=== PATIENT | male | born 1955 | race Caucasian/White ===

== ENCOUNTER 2020-04-09 22:01 | Inpatient (IN) | payer OTHER ==
[~2020-04-09] VITALS: Ht 188 cm; Wt 69.4 kg
[2020-04-09] MEDS ORDERED: FUROSEMIDE 20 MG/2 ML VIAL ONE (22:12)
[2020-04-09] MEDS ORDERED: methylPREDNISolone SOD SUCC 125 MG/2 ML VL ONE (22:12)
[2020-04-09] MEDS ORDERED: methylPREDNISolone SOD SUCC 125 MG/2 ML VL IV ONE (22:15)
[2020-04-09] MEDS ORDERED: FUROSEMIDE 20 MG/2 ML VIAL IV ONE (22:15)
[2020-04-09 22:45] LABS: Basophils # (auto) 0 10 ^3/uL (0-0.2); Eosinophils # (auto) 0 10 ^3/uL (0-0.8); Hemoglobin 10.5 g/dL (13.5-17.5); Red Cell Distribution Width 18.3 % (11.8-14.3)
[2020-04-09 22:46] LABS: Basophils % (auto) 0.6 % (0.0-2.0); Hematocrit 34.3 % (41.0-53.0); Lymphocytes # (auto) 0.6 10 ^3/uL (0.4-5.4); Lymphocytes % (auto) 6.8 % (10.0-50.0); Mean Corpuscular Hemoglobin 25.9 pg (28.0-32.0); Mean Corpuscular Hgb Conc. 30.7 g/dL (32.0-36.0); Mean Corpuscular Volume 84.4 fL (80.0-100.0); Monocytes # (auto) 0.6 10 ^3/uL (0-1.3); Monocytes % (auto) 6.6 % (0.0-12.0); Neutrophils # (auto) 7.4 10 ^3/uL (1.6-8.6); Nucleated Red Blood Cells % 0.4 %; Platelet Count (auto) 372 10^3/uL (140-450); Red Blood Cells 4.06 10^6/uL (4.5-5.90); White Blood Cell 8.6 10^3/uL (4.4-10.8)
[2020-04-09 23:00] LABS: INR 2.97 (0.9-1.15); Partial Thromboplastin Time 42.1 sec (23.64-32.05)
[2020-04-09 23:05] LABS: Albumin 2.6 g/dL (3.4-5.0); BUN/Creatinine Ratio 22.6; Calcium 8.1 mg/dL (8.5-10.1); Magnesium 2.7 mg/dL (1.6-2.6); Potassium 5.4 mmol/L (3.5-5.1)
[2020-04-09 23:08] VITALS: BP 143/87
[2020-04-09 23:14] LABS: Total Protein 5.9 g/dL (6.4-8.2)
[2020-04-10] MEDS ORDERED: NITROGLYCERIN 0.4 MG SL TAB SL PRN (01:45)
[2020-04-10] MEDS ORDERED: IPRATROPIUM BROM 0.5 MG/2.5ML INH SOL NEB PRN (01:45)
[2020-04-10] MEDS ORDERED: ALBUTEROL SULF 2.5 MG/0.5ML(0.5%) NEB SOLN NEB PRN (01:45)
[2020-04-10] MEDS ORDERED: ZOLPIDEM TARTRATE 5 MG TAB PO PRN (01:45)
[2020-04-10 04:09] VITALS: BP 155/100
[2020-04-10 06:20] VITALS: BP 164/96
--- NOTE | 2020-04-10 06:27 | NUR ---
Respiratory note: RECEIVED PATIENT ON B3 BIPAP FITTED WITH A MEDIUM FULL FACE MASK AND BEING VENTILATED WITH THE ABOVE CHARTED SETTINGS. SPO2 100%, LUNG SOUNDS DIM T/O. MASK REMOVED TO ASSESS SKIN; SKIN WAS CLEAR WITH NO REDNESS AND SHOWING NO SIGNS OF LOSS IN INTEGRITY. NO PROTECTA-GEL IN PLACE; WILL CONTINUE TO ASSESS SKIN INTEGRITY. PATIENT IS TOLERATING BIPAP WELL. FIO2 DECREASED TO 30% AT THIS TIME RN KYLER MADE AWARE OF CHANGE. BIPAP PLUGGED INTO RED OUTLET AND ALL ALARMS ARE SET AND AUDIBLE. PRN MED-NEB NOT INDICATED AT THIS TIME PATIENT IS SHOWING NO SIGNS OR SYMPTOMS OF RESPIRATORY DISTRESS.
[2020-04-10 06:43] LABS: Basophils # (auto) 0 10 ^3/uL (0-0.2); Basophils % (auto) 0.2 % (0.0-2.0); Eosinophils # (auto) 0 10 ^3/uL (0-0.8); Lymphocytes # (auto) 0.1 10 ^3/uL (0.4-5.4); Monocytes # (auto) 0.4 10 ^3/uL (0-1.3); Neutrophils # (auto) 13.6 10 ^3/uL (1.6-8.6)
[2020-04-10 06:45] LABS: Hematocrit 35.5 % (41.0-53.0); Hemoglobin 10.8 g/dL (13.5-17.5); Lymphocytes % (auto) 0.8 % (10.0-50.0); Mean Corpuscular Hemoglobin 25.4 pg (28.0-32.0); Mean Corpuscular Hgb Conc. 30.4 g/dL (32.0-36.0); Mean Corpuscular Volume 83.3 fL (80.0-100.0); Monocytes % (auto) 2.7 % (0.0-12.0); Neutrophils % (auto) 96.3 % (37.0-80.0); Nucleated Red Blood Cells % 0.2 %; Platelet Count (auto) 337 10^3/uL (140-450); Red Blood Cells 4.26 10^6/uL (4.5-5.90); White Blood Cell 14.2 10^3/uL (4.4-10.8)
[2020-04-10 06:53] LABS: Calcium 8.6 mg/dL (8.5-10.1); Potassium 5.2 mmol/L (3.5-5.1)
[2020-04-10 06:56] LABS: BUN/Creatinine Ratio 24.3
[2020-04-10] MEDS: LEVOTHYROXINE SODIUM 25 MCG TAB PO SCH (08:37)
[2020-04-10 08:54] LABS: Creatinine, Urine 31 mg/dL (30.0-125.0); Sodium Urine 52 mmol/L (40-220)
[2020-04-10 08:59] LABS: Urine Bacteria FEW /hpf (None Seen); Urine Blood 2+ /uL (Negative); Urine Specific Gravity 1.009 (1.001-1.035); Urine WBC 30 /hpf (0 - 3)
[2020-04-10] MEDS ORDERED: LISINOPRIL 10 MG TAB PO SCH (10:00)
[2020-04-10] MEDS ORDERED: methylPREDNISolone SOD SUCC 125 MG/2 ML VL IV SCH (10:00)
[2020-04-10] MEDS ORDERED: CARVEDILOL 3.125 MG TAB PO SCH (10:00)
[2020-04-10] MEDS: DOCUSATE SOD 100 MG CAP PO SCH (10:00)
[2020-04-10] MEDS: SODIUM BICARBONATE 50ML VIAL 75 ML in SOD CHL 0.45% 1,000 ML IV SCH (10:06)
[2020-04-10] MEDS: FUROSEMIDE 40 MG/4 ML VIAL IV SCH ×2 (10:13→22:42)
[2020-04-10] MEDS: cefTRIAXone 1GM/50ML D5W 50 ML IV SCH (10:14)
[2020-04-10] MEDS: ASPirin 81 mg TAB PO SCH (10:14)
[2020-04-10] MEDS: CLOPIDOGREL BISULFATE 75 MG TAB PO SCH (10:14)
[2020-04-10] MEDS: ENOXAPARIN SOD 80 MG/0.8ML SYRINGE SC SCH (10:15)
--- NOTE | 2020-04-10 15:35 | NUR ---
Telemetry admit from MARIA E SANCHEZ admitted to Telemetry unit after SBAR received. Patient oriented to ELEANOR GRUBBS, primary RN, unit, room, bed, and unit policies regarding patient care and visiting hours. Patient now on continuous telemetry monitoring, tele box # [59] and telemetry reading on arrival to unit is [SR WITH FIRST DEGREE HB, 70'S]. Patient is alert and awake. Pt is placed on bedside oxygen, 3 L NC. No S/S of distress/SOB or pain at present time. Bed is in lowest position, wheels locked, side rails up x2, and call light is within reach. Pt weighed by bed scale and encouraged to call if they need something. All questions and concerns addressed, patient verbalized understanding. Will continue to monitor q1h and prn.
[2020-04-10 16:09] LABS: Free T4 (Free Thyroxine) 0.75 ng/dL (0.89-1.76)
[2020-04-10 16:10] LABS: Free T3 0.89 pg/mL (2.3-4.2)
[2020-04-10 17:19] VITALS: BP 138/86
--- NOTE | 2020-04-10 17:20 | NUR ---
PT C/O OF SOB. WHEEZING IN BASES PRESENT. RT PAGED FOR PRN MED NEBS. WILL CONTINUE TO MONITOR.
--- NOTE | 2020-04-10 17:50 | NUR ---
Attempting to have pacemaker interrogated. Per Pt, he does not know Pacemaker company. Attempted to call [employer] to determine if that is the company. Spoke with Jared, per Jared, it is not [employer]. Possibly is [employer] though. Will call [employer]. Will continue to monitor q1h and prn.
[2020-04-10] MEDS: ONDANSETRON HCL 4 MG/2 ML VIAL IV PRN (17:52)
[2020-04-10] MEDS: Ensure HIGH Protein Chocolate 8oz Bottle PO SCH (18:00)
--- NOTE | 2020-04-10 18:10 | NUR ---
pt accidently pulled out EJ iv. Pt with scant bleeding. Pressure dressing applied, catheter intact. Pt tolerating well. Will continue to monitor.
--- NOTE | 2020-04-10 19:00 | NUR ---
Opening Shift Note Assumed care of patient, awake and alert. No S/S of distress/SOB or pain. Instructed on POC and to call for assist PRN, will continue to monitor for changes Q1hr and PRN.
--- NOTE | 2020-04-10 19:10 | NUR ---
Closing note Patient awake and alert laying in bed. No S/S of distress/SOB or pain. Pacemaker interrogation of attempting to call [employer] endorsed to NOC RN. Care endorsed to NOC RNYohan.
[2020-04-10 20:00] VITALS: BP 139/70
--- NOTE | 2020-04-10 21:00 | NUR ---
Respiratory note: PT ASSESSED FOR PRN MED NEB TX. PT'S HR 72, RR 18,SPO2 90% ON 3L NC. NO S/S OF ANY RESPIRATORY DISTRESS NOTED. ADVISED PT TO CALL IF TX IS NEEDED. RT NAME AND PAGER NUMBER WRITTEN ON PT'S BOARD.
--- NOTE | 2020-04-10 21:45 | NUR ---
received a phone call from radiologist doctor Yandel Crum Abdominal and pelvis ct has some critical findings needed to be transmitted to doctor You. Paged doctor You right away.
[2020-04-10 22:00] VITALS: BP 139/70
[2020-04-10] MEDS ORDERED: ATORVASTATIN 20 MG TAB PO SCH (22:00)
[2020-04-10] MEDS: CARVEDILOL 12.5 MG TAB PO SCH (22:45)
[2020-04-11] VITALS (7 sets, daily range): BP systolic 94–130; BP diastolic 54–69
[2020-04-11] MEDS: SODIUM BICARBONATE 50ML VIAL 75 ML in SOD CHL 0.45% 1,000 ML IV SCH ×2 (00:19→13:55)
[2020-04-11 05:38] LABS: Basophils # (auto) 0 10 ^3/uL (0-0.2); Eosinophils # (auto) 0 10 ^3/uL (0-0.8); Lymphocytes # (auto) 0.1 10 ^3/uL (0.4-5.4); Monocytes # (auto) 0.7 10 ^3/uL (0-1.3); Nucleated Red Blood Cells % 0.3 %
[2020-04-11 05:41] LABS: Hematocrit 32.8 % (41.0-53.0); Lymphocytes % (auto) 1.2 % (10.0-50.0); Mean Corpuscular Hemoglobin 25.6 pg (28.0-32.0); Mean Corpuscular Hgb Conc. 30.5 g/dL (32.0-36.0); Mean Corpuscular Volume 84.1 fL (80.0-100.0); Monocytes % (auto) 5.9 % (0.0-12.0); Neutrophils # (auto) 11.3 10 ^3/uL (1.6-8.6); Neutrophils % (auto) 92.9 % (37.0-80.0); Platelet Count (auto) 215 10^3/uL (140-450); Red Cell Distribution Width 18.1 % (11.8-14.3); White Blood Cell 12.2 10^3/uL (4.4-10.8)
[2020-04-11 06:05] LABS: Potassium 4.4 mmol/L (3.5-5.1)
--- NOTE | 2020-04-11 06:10 | NUR ---
Pt pulled accidentally his IV out. Attempted IV insertion 3 times unsuccessfully.
[2020-04-11 06:20] LABS: BUN/Creatinine Ratio 28.5; Calcium 8.5 mg/dL (8.5-10.1)
--- NOTE | 2020-04-11 06:45 | NUR ---
Paged doctor Alfaro with the BUN result of 113 Left a message. Paged doctor Avelino.
--- NOTE | 2020-04-11 07:00 | NUR ---
At the end of the shift total urine output was 3750ML
--- NOTE | 2020-04-11 07:25 | NUR ---
Respiratory note: NO PRN TX GIVEN AT THIS TIME, NO SOB NOTED. SPO2 91% ON RA, HR 63, RR 18. 3L N/C ON AT THE BEDSIDE.
--- NOTE | 2020-04-11 07:30 | NUR ---
Opening Shift Note Assuming care of patient at this time. Patient is awake and alert. Patient denies pain. Patient shows no signs or symptoms of distress or shortness of breath. Instructed patient on the plan of care for today and to call for assistance as needed. Call light within reach. Will continue to round hourly and as needed.
--- NOTE | 2020-04-11 07:40 | NUR ---
Endorsed care to Zoey.
[2020-04-11] MEDS: Ensure HIGH Protein Chocolate 8oz Bottle PO SCH (08:00)
--- NOTE | 2020-04-11 08:00 | NUR ---
French Bd Special Education Teacher for pace maker interrogating at the bed side.
[2020-04-11] MEDS: LEVOTHYROXINE SODIUM 25 MCG TAB PO SCH (09:16)
[2020-04-11] MEDS: CARVEDILOL 12.5 MG TAB PO SCH (10:00)
[2020-04-11] MEDS: DOCUSATE SOD 100 MG CAP PO SCH (10:00)
[2020-04-11] MEDS: CLOPIDOGREL BISULFATE 75 MG TAB PO SCH (10:00)
[2020-04-11] MEDS: ENOXAPARIN SOD 80 MG/0.8ML SYRINGE SC SCH (10:00)
[2020-04-11] MEDS: ASPirin 81 mg TAB PO SCH (10:00)
[2020-04-11] MEDS: cefTRIAXone 1GM/50ML D5W 50 ML IV SCH (10:30)
[2020-04-11] MEDS ORDERED: PHYTONADIONE (VIT K)10 MG/ML 1ML VIAL SUBCUT ONE (11:00)
[2020-04-11] MEDS ORDERED: IOHEXOL 300 MG/ML 100ML BOTTLE IJ ONE (11:13)
--- NOTE | 2020-04-11 11:32 | NUR ---
Chest CT with contrast After speaking with Dr. Alfaro, this RN informed patient that by having CT chest with contrast, patient would have to agree to dialysis. Patient is refusing to go on dialysis at this time. Informed Dr. Rich. Will cancel CT chest with contrast at this time.
[2020-04-11] MEDS ORDERED: ADENOSINE 59 MG in GIVE UN-DILUTED 0 ML IV STA (11:42)
[2020-04-11] MEDS ORDERED: GASTROGRAFIN 120 ML SOL ONE (11:51)
--- NOTE | 2020-04-11 11:56 | NUR ---
Oral Contrast Spoke with Dr. Alfaro. Oral contrast for imaging studies is acceptable. IV contrast is not acceptable and should not be administered unless patient is agreeable to be placed on dialysis.
[2020-04-11] MEDS ORDERED: SEVELAMER 800 MG TAB PO SCH (12:00)
[2020-04-11] MEDS ORDERED: EZ-GAS II GRANULES (RADIOLOGY USE) PO ONE (13:21)
--- NOTE | 2020-04-11 15:45 | NUR ---
Pre-Op Took patient down to pre-op at this time in order for patient to have procedure with Dr. Vick. Once downstairs, Dr. Vick would prefer to do procedure tomorrow once labs are addressed. Dr. Vick explained procedure to patient at this time. Patient verbalized understanding.
[2020-04-11] MEDS ORDERED: PIPERACILLIN-TAZOB 2.25GM 50 ML IV ONE (16:15)
--- NOTE | 2020-04-11 16:30 | NUR ---
Call to Blood Bank Call to blood bank. Blood bank aware of patient's orders. They will call when plasma is ready.
--- NOTE | 2020-04-11 17:42 | NUR ---
[phone] 04/11/20 - Faxed the following to [facility], [facility], [place] facilities requesting higher level of care, (patient requires repair of distal esophageal tear) face sheet, H/P, labs, Meds, imaging, consults, Echo. Placed patient on [facility] will call list. Nurse caring for patient (Zoey) made aware.
--- NOTE | 2020-04-11 18:24 | NUR ---
Consents Patient is refusing to sign procedure consents at this time because, "I'm tired and hungry!" Will notify police shift commander RN to attempt to have consents signed for both procedures.
--- NOTE | 2020-04-11 19:31 | NUR ---
Closing Shift Note Patient resting in bed. No distress noted. Report given. Will endorse care to the academic affairs assistant RN.
--- NOTE | 2020-04-11 23:39 | NUR ---
RECEIVED REPORT FROM NURSE KEY REGARDING PATIENT. PATIENT HAS PENDING PLATELET INFUSION. PATIENT BEING TRANSFERRED REQUIRING SITTER AT BEDSIDE FOR CONFUSION. AWAITING PATIENT ARRIVAL TO UNIT.
[2020-04-12] VITALS (42 sets, daily range): BP systolic 83–141; BP diastolic 42–117
--- NOTE | 2020-04-12 00:15 | NUR ---
Pt transferred to the sitter room 248B.Endorsed care to Julia
[2020-04-12] MEDS: PIPERACILLIN-TAZOB 2.25GM 50 ML IV SCH ×4 (00:19→17:24)
--- NOTE | 2020-04-12 00:28 | NUR ---
INITIATED PLASMA TRANSFUSION Addendum: 04/12/20 at 0152 by LEANN WU RN RN PATIENT HAS NO ADVERSE REACTIONS TO PLASMA VITALS STABLE.
--- NOTE | 2020-04-12 00:30 | NUR ---
PATIENT HYPOTENSIVE BP85/54 HR 64 ASYMPTOMATIC. CRIS HOSPITALIST FOR ORDERS AWAIITNG CALL BACK. Addendum: 04/12/20 at 0057 by LEANN WU RN RN RECEIVED ORDER FOR ALBUMIN 5% 250ML IV X1 FOR HYPOTENSION BP 85/51
[2020-04-12] MEDS ORDERED: ALBUMIN 5% 250 ML IV ONE (01:00)
[2020-04-12] MEDS: SODIUM BICARBONATE 50ML VIAL 75 ML in SOD CHL 0.45% 1,000 ML IV SCH (04:15)
--- NOTE | 2020-04-12 06:18 | NUR ---
CHARGE CONFIRMED PATIENT IS STILL ON SCHEDULE FOR THORACOTOMY WITH DR QUINONES. PAGED DR QUINONES REGARDING PATIENT. AWAITING CALL BACK. PRE-OP CALLED ASKING ABOUT PATIENT PROCEDURE AND THAT SHE WILL TALK TO OR CHARGE NURSE.
--- NOTE | 2020-04-12 07:30 | NUR ---
Opening Shift Note Assumed care of patient, awake and alert. No S/S of distress/SOB or pain. Instructed on POC and to call for assist PRN, will continue to monitor for changes Q1hr and PRN. Bed locked and in low position and call light within reach.
--- NOTE | 2020-04-12 07:50 | NUR ---
SPOKE WITH MD QUINONES SURGERY WILL NOT BE DONE AT THIS TIME PATIENT IS HIGH RISK FOR COMPLICATIONS. PATIENT NEEDS TO BE TRANSFERRED TO HIGHER LEVEL OF CARE FOR PROCEDURE. PER MD QUINONES PATIENT NEEDS TO BE TRANSFERRED TO ICU, DUE TO RISK OF COMPLICATIONS WITH PATIENTS DIAGNOSIS. WILL INFORM UNDERCOLLAR MAKER OF TRANSFER REQUEST.
--- NOTE | 2020-04-12 09:15 | NUR ---
I faxed urgent higher level of care request to both [facility] and [facility], asking for a list of contracted facilities as well as authorization for the transfer.
--- NOTE | 2020-04-12 09:18 | NUR ---
I called [facility] and spoke with Malorie, she said they declined this patient for transfer-they deemed him too high risk for surgery at this time due to elevated INR.
[2020-04-12] MEDS ORDERED: SODIUM CHLORIDE 0.9% 1,000 ML IV SCH (09:30)
--- NOTE | 2020-04-12 09:32 | NUR ---
0930 04/12/20 I contacted [facility] and left message for Clerical Supervisor Catherine [phone] regarding stat need for transfer to higher level of care-asking for list of contracted facilities and authorization for facility as well as transportation. I contacted [facility] and left message for case finishing machine adjuster Blanche [phone] extension [phone] regarding stat need for transfer to higher level of care-asking for list of contracted facilities and authorization for facility as well as transportation. Same request faxed to both [facility] and [facility].
--- NOTE | 2020-04-12 09:40 | NUR ---
PATIENT TRANSFERRED TO ICU BED 106 NO S/S OF DISTRESS OR SOB. REPORT GIVEN TO MONICA GÓMEZ.
--- NOTE | 2020-04-12 09:40 | NUR ---
MARIA E MARTINEZ received to ICU via hospital bed on forestry aide, and portable 02. Patient transferred to bed, connected to unit monitoring and oxygen, and weighed by [facility]. See interventions for complete assessment. Patient oriented to Anh bain RN, unit, room, bed, and unit policies regarding patient care and visiting hours. All questions and concerns addressed, patient verbalized understanding. Bed locked on low position, side rails up x2, bed alarms on at all times, call medina within reach, instructed on NPO and to call for needed assistance. Will continue to monitor.
[2020-04-12 09:44] LABS: Alanine Aminotransferase 633 U/L (16-61); Anion Gap 11 (5-15); Aspartate Aminotransferase 196 U/L (15-37); Calcium 7.6 mg/dL (8.5-10.1); Carbon Dioxide 24 mmol/L (21-32); Chloride 106 mmol/L (98-107); GFR African American 24 mL/min; GFR Non-African American 19 mL/min; Glucose 147 mg/dL (74-106); Potassium 3.7 mmol/L (3.5-5.1); Sodium 141 mmol/L (136-145)
[2020-04-12 09:46] LABS: Alkaline Phosphatase 70 U/L (45-117); Bilirubin, Total 0.6 mg/dL (0.2-1.0); Total Protein 5.1 g/dL (6.4-8.2)
[2020-04-12] MEDS ORDERED: FUROSEMIDE 40 MG/4 ML VIAL IV SCH (10:00)
[2020-04-12 10:03] LABS: Blood Urea Nitrogen 106 mg/dL (7-18)
--- NOTE | 2020-04-12 10:24 | NUR ---
1020 04/12/20 I spoke with Catherine from [facility] regarding the transfer to higher level of care order. Per Catherine, since patient is out of area, they want to bring patient back in network ([place]) to a higher level of care facility. I faxed additional clinical information as requested to Catherine-provided her with contact information for Dr. Rich. Per Catherine she will reach out to her biomedical technician to find out which of their contracted facilities have the capability to accommodate this patient-she will then reach out to those facilities to see if she can find an accepting physician. She will call me back with an update on the status of the transfer request. She will be providing authorization for the higher level of care facility, she said Human provides authorization for the transportation to the facility.
[2020-04-12] MEDS ORDERED: NOREPINEPHRINE 8 MG/250ML KIT 250 ML IV SCH (10:30)
[2020-04-12 10:36] LABS: INR 1.29 (0.9-1.15)
[2020-04-12 10:36] LABS: Basophils # (auto) 0 10 ^3/uL (0-0.2); Eosinophils # (auto) 0 10 ^3/uL (0-0.8); Lymphocytes # (auto) 0.1 10 ^3/uL (0.4-5.4); Monocytes # (auto) 0.6 10 ^3/uL (0-1.3); Nucleated Red Blood Cells % 0.2 %; White Blood Cell 11.3 10^3/uL (4.4-10.8)
[2020-04-12 10:37] LABS: Partial Thromboplastin Time 41.9 sec (23.64-32.05)
[2020-04-12 10:38] LABS: Basophils % (auto) 0.1 % (0.0-2.0); Hematocrit 32.1 % (41.0-53.0); Hemoglobin 9.9 g/dL (13.5-17.5); Mean Corpuscular Hemoglobin 25.5 pg (28.0-32.0); Mean Corpuscular Hgb Conc. 30.8 g/dL (32.0-36.0); Mean Corpuscular Volume 82.9 fL (80.0-100.0); Monocytes % (auto) 5.7 % (0.0-12.0); Neutrophils # (auto) 10.5 10 ^3/uL (1.6-8.6); Neutrophils % (auto) 93.2 % (37.0-80.0); Platelet Count (auto) 179 10^3/uL (140-450); Red Blood Cells 3.87 10^6/uL (4.5-5.90); Red Cell Distribution Width 18.4 % (11.8-14.3)
--- NOTE | 2020-04-12 10:38 | NUR ---
Dr Rich at bedside, updated on patient's status. Patient seen and examined. Will carry out new orders.
[2020-04-12] MEDS ORDERED: LINEZOLID 600MG/300ML 300 ML IV ONE (11:00)
--- NOTE | 2020-04-12 12:32 | NUR ---
PT ASSESSED FOR PRN HHN TX. PT IS ON 4LNC, SPO2 98%, HR 63, RR 20. NO S/S OF RESPIRATORY DISTRESS. LUNGS ARE CLEAR AND DECREASED. PT AWARE TO HAVE RT PAGED IF TX NEEDED. WILL CONTINUE TO MONITOR.
--- NOTE | 2020-04-12 13:00 | NUR ---
Midline Placement: Patient educated on need for midline placement. All risks and benefits explained and all questions and concerns addresses prior to procedure. 20g/8cm midline inserted via right basilic vein using Ultrasound. Sterile technique utilized. Blood return obtained from lumen and flushed easily with NS using proper technique. Midline secured with saline lock; biodisc and occlusive dressing applied. Primary RN notified. Midline lot #[id number]
[2020-04-12] MEDS ORDERED: LIDOCAINE 2%HCL (LOCAL ANESTH.) INJ 20ML MDV ONE (13:08)
[2020-04-12] MEDS ORDERED: OMNIPAQUE ORAL SOLN 500ml 12mg/ml PO ONE (13:08)
[2020-04-12] MEDS: OCTREOTIDE ACETATE 100 MCG/ML VL SUBCUT SCH ×2 (14:12→22:31)
--- NOTE | 2020-04-12 15:14 | NUR ---
Patient out of room to CT scan.
--- NOTE | 2020-04-12 15:24 | NUR ---
1515 04/12/20 I spoke with Catherine from [facility] requesting an update on the status of the transfer-I let her know that patient is now on a Levophed drip and needs to be transferred STAT. She told me she is waiting to hear back from her Mold Maker Helper as to which facilities she can reach out to. I called Catherine back and left a message asking to speak with a housekeeper supervisor if her medical scientist isn't available and that I need to know specific facilities that we can reach out to.
[2020-04-12] MEDS ORDERED: fentaNYL CITRATE 100 MCG/2 ML VL ONE (15:26)
[2020-04-12] MEDS ORDERED: MIDAZOLAM HCL 1MG/1ML-2 ML VIAL ONE (15:27)
--- NOTE | 2020-04-12 15:28 | NUR ---
Received call from patient's daughter Stephanie who's able to provide password. Updated on patient's status and POC, made aware patient is out of room at this time for mediastinal drain and chest tube placement. Verbalized understanding. All questions and concerns addressed.
--- NOTE | 2020-04-12 16:26 | NUR ---
1616 04/12/20 I spoke with [facility] Foot Caster Catherine [phone] regarding the transfer to higher level of care-she said per her medical pathologist Dr. Benitez [phone] patient is not stable for transfer at this time-they will not authorize transfer to higher level of care. I spoke with Dr. Vick to make him aware-he agreed that the patient is not stable at this time-radiology is going to perform a procedure to drain the mediastinum and when more stable Dr. Vick will consider doing a gastrostomy. I spoke with Dr. Rich to make him aware that [facility] will not authorize transfer to higher level of care at this time-he called their medical pathologist Dr. Benitez ([phone]) and there was no answer. Addendum: 04/12/20 at 1655 by Aurelia Cain RN CM I spoke with nurse Kamara to update her on the status of the transfer request and that I had placed [facility] on will call.
--- NOTE | 2020-04-12 17:05 | NUR ---
Patient back to room s/p CT guided mediastinal drain and RT chest tube placement. VS WNL, no S/S of SOB/distress noted. Mediastinal urosil draining sanguinous, minimal amount, collapsed. RT chest tube to -[id number] suction, no drain at this time. Bed locked on low position, side rails up x2, bed alarms on at all times, call medina within reach, instructed to call for needed assistance. Will continue to monitor.
--- NOTE | 2020-04-12 18:43 | NUR ---
RT NOTE PT WAS SEEN BY RT FOR PRN HHN TX ASSESSMENT. PT IS ON 4L NASAL CANNULA WITH SATS AT 97%. BSA RE DIMINISHED THROUGHOUT. PT HAS A NOTED RIGHT SIDED AND MEDIASTINAL CHEST TUBE. PT ASKING FOR WATER. RN NOTIFIED. NO OPRN TX NEEDED AT THIS TIME. CONT ORDERED Addendum: 04/12/20 at 2000 by Tierra Brown RT CHARTING ERROR: THERE IS A LEFT SIDE CHEST TUBE AND MEDIASTINAL. NOT RIGHT SIDED.
--- NOTE | 2020-04-12 19:03 | NUR ---
100 ml of sanguinous fluid drained from mediastinal pigtail chest cath
--- NOTE | 2020-04-12 19:15 | NUR ---
Received call from Dr Restrepo stating "For any consult in the unit, I want the physician to directly call me." Andrew Mi NP informed.
--- NOTE | 2020-04-12 19:30 | NUR ---
REPORT RECEIVED AND ASSUMED CARE; SEE INTERVENTIONS FOR ASSESSMENT; SEE IV SPREADSHEET FOR GTTS; VS STABLE AT THIS TIME WITH PT. ON 4L NC; WILL CONT. TO MONITOR.
[2020-04-12] MEDS: LINEZOLID 600MG/300ML 300 ML IV SCH (22:31)
[2020-04-12] MEDS: MORPHINE SULF INJ 2 MG/ML SYRINGE 1ML IV PRN (22:33)
[2020-04-13] VITALS (61 sets, daily range): BP systolic 70–125; BP diastolic 31–77
[2020-04-13] MEDS: MORPHINE SULF INJ 2 MG/ML SYRINGE 1ML IV PRN ×4 (03:46→20:40)
[2020-04-13 05:00] LABS: Basophils # (auto) 0 10 ^3/uL (0-0.2); Basophils % (auto) 0.1 % (0.0-2.0); Eosinophils # (auto) 0 10 ^3/uL (0-0.8); Hematocrit 28.5 % (41.0-53.0); Hemoglobin 8.6 g/dL (13.5-17.5); Lymphocytes # (auto) 0.2 10 ^3/uL (0.4-5.4); Lymphocytes % (auto) 1.4 % (10.0-50.0); Mean Corpuscular Hemoglobin 24.9 pg (28.0-32.0); Mean Corpuscular Hgb Conc. 30.2 g/dL (32.0-36.0); Mean Corpuscular Volume 82.4 fL (80.0-100.0); Monocytes # (auto) 0.7 10 ^3/uL (0-1.3); Monocytes % (auto) 6.3 % (0.0-12.0); Neutrophils # (auto) 10.3 10 ^3/uL (1.6-8.6); Neutrophils % (auto) 92.2 % (37.0-80.0); Nucleated Red Blood Cells % 0.3 %; Platelet Count (auto) 159 10^3/uL (140-450); Red Blood Cells 3.46 10^6/uL (4.5-5.90); Red Cell Distribution Width 18.3 % (11.8-14.3); White Blood Cell 11.1 10^3/uL (4.4-10.8)
[2020-04-13 05:20] LABS: INR 1.32 (0.9-1.15)
[2020-04-13 05:24] LABS: Calcium 7.8 mg/dL (8.5-10.1); Potassium 3.9 mmol/L (3.5-5.1)
[2020-04-13 05:27] LABS: BUN/Creatinine Ratio 31.3; Bilirubin, Total 0.6 mg/dL (0.2-1.0)
[2020-04-13] MEDS: PIPERACILLIN-TAZOB 2.25GM 50 ML IV SCH ×4 (06:00→17:44)
[2020-04-13] MEDS: OCTREOTIDE ACETATE 100 MCG/ML VL SUBCUT SCH ×3 (06:00→22:08)
--- NOTE | 2020-04-13 06:30 | NUR ---
Respiratory note: PT AWAKE, AND ALERT. NO RESPIRATORY DISTRESS NOTED. SPO2 99% ON 4L NC, HR 54, RR 11, BS CLEAR BILATERALLY. PRN MEDNEB TX NOT INDICATED AT THIS TIME. PT INFORMED TO PUSH CALL BUTTON IF INCREASED WOB, SOB, OR WHEEZING OCCURS. RN AT BEDSIDE. WILL CONTINUE TO MONITOR PT.
--- NOTE | 2020-04-13 07:30 | NUR ---
RECEIVED PATIENT SITTING UP IN THE BED, AND WAS BEING SARCASTIC, WHEN I WAS ASKING HIS NAME AND WHERE HE WAS AND HOW OLD HE WAS,BUT EVENTUALLY ANSWERED, O2 AT 4L BY N/C, LEVO INFUSING INTO THE GURMEET MIDLINE AT 3MCG BY THE THE IV PUMP, NS AT 100ML/HR BOTH BY THE IV PUMP, KURTZ TO GRAVITY, PIG TAIL CATHETERS TO THE BACK TIMES 2 AND CONNECTED TO SUCTION, RT SIDE TO THE ACCORDION DRAIN BAG AND THE LEFT SIDE TO THE ATRIUM WITH -20CM OF SUCTION,
--- NOTE | 2020-04-13 08:45 | NUR ---
EXPLAIN TO THE PATIENT THAT HE WAS NOT ABLE TO EAT AT THIS TIME
--- NOTE | 2020-04-13 10:00 | NUR ---
RUDI IS A LITTLE RUDE WHEN YOU TRY TO TALK TO HIM AND ASK QUESTIONS Addendum: 04/13/20 at 2000 by Monica Crocker RN PATIENT (JAYMIE)
[2020-04-13] MEDS: LINEZOLID 600MG/300ML 300 ML IV SCH ×2 (10:22→22:08)
[2020-04-13] MEDS ORDERED: TPN PER PHARMACY 0 ML IV SCH (11:15)
[2020-04-13] MEDS ORDERED: SODIUM CHLORIDE 0.9% 1,000 ML IV SCH (11:15)
--- NOTE | 2020-04-13 11:35 | NUR ---
DR MAYES INTO SEE THE PATIENT
[2020-04-13 11:45] LABS: Magnesium 2.6 mg/dL (1.6-2.6)
--- NOTE | 2020-04-13 11:47 | NUR ---
MEDICATED WITH MS FOR PAIN TO THE BACK 07/29
[2020-04-13 11:49] LABS: Phosphorus 7.1 mg/dL (2.5-4.90); Pre Albumin 7.7 mg/dL (20.0-40.0)
[2020-04-13] MEDS ORDERED: SALINE 0.65 % NASAL SPRAY 45ML BOTTLE EACHNOSTRI SCH (12:00)
--- NOTE | 2020-04-13 12:23 | NUR ---
Est energy needs 4810-5487 kcal (30-33kcal/kg BW 70.3kg) Est protein needs 42-53g (0.6-0.75g/kg BW 70.3kg d/t ARF, elevated RFT, no HD, adjust if HD noted or initiated) Will reassess prn Consider Jevity 1.2 at 60 ml/hr if TF is considered per MD approval, can increase rate if pt has HD Addendum: 04/13/20 at [address] Amended: Links added.
--- NOTE | 2020-04-13 13:00 | NUR ---
LYING IN BED WITH EYES CLOSED STATES THE MORPHINE HELPED, BUT HE DIDN'T GO TO SLEEP
--- NOTE | 2020-04-13 14:00 | NUR ---
PATIENT MOVES AROUND IN THE BED A LOT, REMIND HIM ABOUT THE TUBES IN HIS BACK AND NOT TO PULL THEM OUT;
--- NOTE | 2020-04-13 15:00 | NUR ---
PICC LINE NURSE HERE TO PLACE A PICC LINE SO THE PATIENT CAN HAVE TPN STARTED ANDREA
--- NOTE | 2020-04-13 15:10 | NUR ---
PATIENT TALKING TO HIS SISTER ON THE PHONE AND THREW THE PHONE AFTER HE WAS FINISHED WHICH ALMOST HIT THE PICC LINE NURSE
--- NOTE | 2020-04-13 15:46 | NUR ---
assessment Patient is a 64 year old male who is alert and oriented. Per patients daughter Stephanie [phone] prior to admission patient lived home alone and was independent. Patient has a fww and cpap for home use. Patient was having shortness of breath and chest pain and drove himself to the fire department. Patient was brought to ER and admitted. Admitting diagnosis of NSTEMI, severe acute on chronic CHF, and Acute renal failure. Patient is now being transferred for higher level of care for a distal esophageal tear. Aurelia manager rn case is working on transfer. Patient agrees to transfer. Waiting on accepting facility and bed now. Addendum: 04/13/20 at 1551 by Hermila DAVILA Amended: Links added.
--- NOTE | 2020-04-13 15:53 | NUR ---
PICC line placement Patient educated on need for PICC line placement. All risks and benefits explained and all questions and concerns addressed prior to procedure. Noted past medical history and allergies with no contraindications. INR and Plt counts within acceptable range. 5 fr PICC line exchanged with existing midline over a guidewire via right basilic vein using [employer] US and Tip Location System. Midline was removed with 8 cm catheter in tact. Sterile technique with maximum barrier precautions utilized. Blood return obtained from each of the 3 lumens and each flushed easily with NS using proper technique. PICC secured with Stat-lock; biodisc and occlusive dressing applied. Stat portable chest x-ray obtained for PICC tip placement. *Baseline Arm Circumference 22 cm. Internal length 50 cm. External length 0 cm. PICC lot #[id number]
--- NOTE | 2020-04-13 15:55 | NUR ---
CHEST X-RAY TAKEN AFTER PICC LINE PLACED
[2020-04-13] MEDS ORDERED: LIDOCAINE 1% (LOCAL ANESTH.) PF 5ml SDV ID ONE (16:00)
--- NOTE | 2020-04-13 16:00 | NUR ---
DISCUSSED MEDICATIONS WITH THE PATIENT REGARDING THE DOSAGE, USAGE AND THE SIDE EFFECTS, VERBALIZED HE UNDERSTOOD AND MEDS GIVEN ORDERED Addendum: 04/13/20 at 1708 by Monica Crocker RN CHANGE TIME TO 1000
--- NOTE | 2020-04-13 16:06 | NUR ---
Okay to use PICC line Xray completed and reviewed. Okay to use PICC line. Primary RN notified.
--- NOTE | 2020-04-13 16:35 | NUR ---
RECEIVED CALL FROM DR MAYES AND STATED THE PATIENT HAS A PNEUMO AND DR TRACEY IS GOING TO LOOK AT HE X-RAY AND SEE IF HE NEEDS TO DO AN INTERVENTION
[2020-04-13] MEDS ORDERED: LEVOTHYROXINE SODIUM 100 MCG/5 ML INJ IV ONE (17:15)
--- NOTE | 2020-04-13 17:30 | NUR ---
LYING IN BED WITH EYES CLOSED AFTER TALKING TO HIS SISTER
--- NOTE | 2020-04-13 18:30 | NUR ---
DR JEREZ IN PLACING A CHEST TUBE TO THE RT SIDE OF THE CHEST, KURTZ TO GRAVITY, LEVO INFUSING AT 3MCG INTO THE GURMEET PICC LINE, BY THE IV PUMP, PIG TAIL CHEST TUBES THE RT SIDE AND LEFT SIDE OF THE BACK BOTH WITH SUCTION, WILL CONTINUE TO MONITOR AND GIVE REPRO TO THE NEXT SHIFT
--- NOTE | 2020-04-13 19:00 | NUR ---
ADMITTED WITH NSTEMI, SEVERE ACUTE ON CHRONIC CHG AND ARF. NEWER DIAGNOSIS PNEUMOMEDIASTINUM. HAS [address] JEREZ PLACED A RIGHT ANTERIOR CHEST TUBE TO 20CM OF DRY ATRIUM PRESSURE. HAS A LEFT POSTERIOR PIGTAIL TO 20CM OF DRY ATRIUM PRESSURE. RIGHT POSTERIOR PIGTAIL TO AN ACCORDIAN DRAIN. ON A 1200CC FLUID RESTRICTION. NPO. HAS AN OLD SUPRAPUBIC TO DOWN DRAIN BAG. NEW RIGHT UPPER ARM PICC LINE TODAY. ONE RIGHT FOREARM 22G NOT IN USE. HAS A LEFT ELBOW WOUND. DR MAYES PUT AN ORDER FOR TRANSFER TO [facility] AND I UNDERSTAND THEY REFUSED BASED ON INSURANCE. HAS A PACEMAKER BUT IT IS CURRENTLY NOT PACING. IS A FIRST DEGREE AV BLOCK. ON 4LNP.
[2020-04-13] MEDS: ALBUTEROL SULF 2.5 MG/0.5ML(0.5%) NEB SOLN NEB SCH ×2 (19:36→22:46)
[2020-04-13] MEDS: IPRATROPIUM BROM 0.5 MG/2.5ML INH SOL NEB SCH ×2 (19:36→22:46)
[2020-04-13] MEDS: ACETYLCYSTEINE 10 %(100MG/ML) SOL 4ML NEB SCH ×2 (19:36→22:47)
[2020-04-13] MEDS ORDERED: CLINIMIX PER PHARMACY IV NR (20:00)
--- NOTE | 2020-04-13 20:00 | NUR ---
PATIENT IS CONFUSED AT TIMES, FORGETFUL. NEEDS HELP UNDERSTANDING HIS TREATMENT. LUNGS DIMINISHED. ABDOMEN SOFT AND FLAT. GOOD URINE OUTPUT. IV SHOWS NO REDNESS OR SWELLING. AT 2039 RECEIVED MORPHINE FOR HIS BACK PAIN.
[2020-04-13] MEDS ORDERED: MUPIROCIN 2% OINT 15gm or 22gm EACHNOSTRI SCH (22:00)
--- NOTE | 2020-04-13 22:00 | NUR ---
MOUTH IS VERY DRY . ORAL CARE DONE. NONPRODUCTIVE COUGH. MORPHINE IS HELPING PAIN IN HIS BACK. REMAINS CONFUSED. NEW CHEST TUBE IS DRAINING WELL.
[2020-04-13] MEDS: PANTOPRAZOLE 40 MG/10 ML VIAL INJ IV SCH (22:08)
[2020-04-13] MEDS: SODIUM CHLOR 0.9% PF (SALINE LOCK) 10ML VIAL/SYR IV SCH (22:09)
[2020-04-14] VITALS (49 sets, daily range): BP systolic 94–137; BP diastolic 50–87
[2020-04-14] MEDS ORDERED: DEXTROSE (50%) 50ML SYRG IV SCH
--- NOTE | 2020-04-14 | NUR ---
NOT MUCH FROM THE POSTERIOR CHEST TUBES. NEW CHEST TUBE IS DRAINING A WATERY RED LIQUID. NO AIR LEAK. NO CREPITUS. ABDOMEN FLAT AND SOFT . ACCUCHECK IS 170. PATIENT STATED THAT HE WAS NOT DIABETIC. COVERED WITH BLANKETS NOW AND IS SLEEPING ON AND OFF.
[2020-04-14] MEDS: MORPHINE SULF INJ 2 MG/ML SYRINGE 1ML IV PRN ×3 (00:31→22:12)
[2020-04-14] MEDS: PIPERACILLIN-TAZOB 2.25GM 50 ML IV SCH ×4 (00:33→17:56)
--- NOTE | 2020-04-14 02:00 | NUR ---
FOUND HIM WITH HIS LEGS OUT OF BED. LUCKILY NOTHING WAS BEING PULLED OR STRESSED IN THE WRONG DIRECTION. WHEN HE SAW ME HE IMMEDIATELY PUT HIS LEGS BACK IN BED . STRAIGHTENED HIS TUBINGS AND CHECKED WATER LEVEL.
[2020-04-14] MEDS: ACETYLCYSTEINE 10 %(100MG/ML) SOL 4ML NEB SCH ×6 (02:43→22:11)
[2020-04-14] MEDS: IPRATROPIUM BROM 0.5 MG/2.5ML INH SOL NEB SCH ×6 (02:43→22:11)
[2020-04-14] MEDS: ALBUTEROL SULF 2.5 MG/0.5ML(0.5%) NEB SOLN NEB SCH ×6 (02:43→22:11)
--- NOTE | 2020-04-14 03:00 | NUR ---
AM LABS SENT
[2020-04-14 04:51] LABS: Albumin 1.9 g/dL (3.4-5.0); Calcium 7.6 mg/dL (8.5-10.1); Magnesium 2.6 mg/dL (1.6-2.6); Potassium 3.7 mmol/L (3.5-5.1)
[2020-04-14 04:56] LABS: BUN/Creatinine Ratio 30.5; Bilirubin, Total 0.5 mg/dL (0.2-1.0); Phosphorus 6.1 mg/dL (2.5-4.90)
[2020-04-14] MEDS: OCTREOTIDE ACETATE 100 MCG/ML VL SUBCUT SCH ×3 (05:53→22:11)
[2020-04-14] MEDS: ACCU-CHEK COMFORT CURVE STRIP VI SCH ×4 (05:54→17:49)
--- NOTE | 2020-04-14 06:00 | NUR ---
RESPIRATORY TREATMENT AND COMPLETE LINEN CHANGE.
[2020-04-14] MEDS: InsuLIN REG 1unit/0.01ml Soln (100units/ml) SC SCH ×4 (06:10→17:49)
--- NOTE | 2020-04-14 06:45 | NUR ---
THROUGHOUT THE NIGHT, HE KEEPS TAKING HIS OXYGEN OFF REPEATEDLY. PICKS UP THE ACCORDIAN BAG AND THROWS IT IN THE BED. HE PICKED U P THE KURTZ BAG AND THREW IT ON THE FLOOR. HE TALKS TRASHY. HE HAS A POOR ATTITUDE. HE DOESN'T UNDERSTAND WHAT IS GOING ON. HE TRIES, BUT THEN SAYS INAPPROPRIATE THINGS FOR EXAMPLE , HE TOLD ME THAT THE IVPB SHOULD BE RUBBED ON THE WRIST. HE BEARS WATCHING. UPDATED THE NUCLEAR TEST TECHNICIAN THAT HE IS NOW OFF LEVOPHED.
--- NOTE | 2020-04-14 07:30 | NUR ---
RECEIVED PATIENT SITTING UP IN THE BED, O2 AT 4L BY THE N/C, A/O ABLE TO ANSWER THE QUESTIONS BUT THEN SAYING THAT HE IS DOING MATH PROBLEMS AND HE NEEDS TIME TO DO OTHER THINGS, BESIDES BEING HERE IN THE HOSPITAL, KURTZ TO GRAVITY, 02 AT 3L BY N/C, ANTERIOR CHEST TUBE CONNECTED TO ATRIUM AND -20CM OF SUCTION, RT PIG TAIL CHEST TUBE CONNECTED TO ACCORDION DRAIN, LEFT PIG TAIL CHEST TUBE CONNECTED TO THE ATRIUM WITH -20 OF SUCTION CLINIMIX AT 42ML/HR AND NS AT 50ML/HR BOTH INFUSING INTO THE GURMEET PICC LINE BY THE IV PUMP,
--- NOTE | 2020-04-14 08:00 | NUR ---
REMINDED THE PATIENT NOT TO PULL ON THE CHEST TUBE AND TO STOP TAKING OFF HIS OXYGEN
--- NOTE | 2020-04-14 08:40 | NUR ---
WALLY EDUCATIONAL RESOURCE COORDINATOR IN TO SEE THE PATIENT BUT NO NEW ORDERS WRITTEN
--- NOTE | 2020-04-14 09:00 | NUR ---
DR JEREZ INTO SEE THE PATIENT AND CHECKED THE CHEST TUBE
[2020-04-14] MEDS: LINEZOLID 600MG/300ML 300 ML IV SCH ×2 (09:47→22:11)
[2020-04-14] MEDS: LEVOTHYROXINE SODIUM 100 MCG/5 ML INJ IV SCH (09:47)
[2020-04-14] MEDS: PANTOPRAZOLE 40 MG/10 ML VIAL INJ IV SCH ×2 (09:48→22:11)
[2020-04-14] MEDS: SODIUM CHLOR 0.9% PF (SALINE LOCK) 10ML VIAL/SYR IV SCH ×2 (09:48→22:12)
--- NOTE | 2020-04-14 09:50 | NUR ---
DISCUSSED MEDICATIONS WITH THE PATIENT REGARDING THE DOSAGE, USAGE AND THE SIDE EFFECTS, VERBALIZED HE UNDERSTOOD AND MES GIVEN ORDERED
--- NOTE | 2020-04-14 10:30 | NUR ---
HAVE TO CONTINUOUSLY TO TELL THE PATIENT NOT TO TAKE OFF HIS OXYGEN AND NOT TO PULL ON HIS CHEST TUBE LINES
--- NOTE | 2020-04-14 11:05 | NUR ---
DR MAYES IN TO SEE THE PATIENT
--- NOTE | 2020-04-14 11:30 | NUR ---
DR WILLIS IN TO SEE THE PATIENT AND ORDERED A KIDNEY US
--- NOTE | 2020-04-14 11:38 | NUR ---
nutrition note: pt consult for EN/PN. per RN pt with esophageal tear and to begin with [employer] tonight. pt is currently NPO. rec: Advance PN support to meet > 75% of needs
--- NOTE | 2020-04-14 11:45 | NUR ---
US TECH HER DOING THE US OF THE KIDNEY
--- NOTE | 2020-04-14 12:06 | NUR ---
SITTING UP IN THE BED WITH HIS EYES CLOSED
[2020-04-14] MEDS: BUMETANIDE 2.5mg/10ml (0.25 mg/ml) INJ IV SCH (12:28)
--- NOTE | 2020-04-14 12:56 | NUR ---
REMINDED PATIENT TO KEEP HIS O2 ON AND HIS PULSE OX
--- NOTE | 2020-04-14 14:45 | NUR ---
DAUGHTER CAME TO SEE THE PATIENT AND EXPRESS TO HER THAT THERE WAS NO VISITING SHE GOT UPSET AND EXPRESS TO HER THAT I WOULD CALL DR MAYES AND SEE IF SHE WOULD COME TO THE LOBBY AND TALK TO HER
--- NOTE | 2020-04-14 15:00 | NUR ---
DR MAYES AND DAYNA ROBERTSON WENT TO THE LOBBY AND TALK TO THE THE DAUGHTER REGARDING THE PATIENT
--- NOTE | 2020-04-14 15:32 | NUR ---
PATIENT LYING IN BED ENCOURAGED TO LEAVE ON HIS OXYGEN
--- NOTE | 2020-04-14 15:38 | NUR ---
DR JEREZ CALLED AND STATED HE WANTED TO REPOSITION THE CHEST TUBE AND WOULD BE HERE SHORTLY
--- NOTE | 2020-04-14 16:10 | NUR ---
SITTING UP IN BED TALKING HIS O2 OFF AND SAYING IT DOESN'T BELONG TO HIM, ORIENTED BACK TO THE SITUATION
--- NOTE | 2020-04-14 17:16 | NUR ---
DR JEREZ HERE TO REPLACE THE CHEST TUBE
--- NOTE | 2020-04-14 18:30 | NUR ---
PATIENT SITTING UP IN THE BED CALLING FOR ERICA, ASK WHO WAS ERICA NONE OF YOUR BUSINESS AND ITS NOT YOU, EXPRESS TO HIM THAT WAS OKAY, O2 ON HIS HEAD AND EXPRESS TO HIM THAT HE NEEDED TO PUT IT BACK IN HIS NOSE, SUPRA PUBIC TO THE ABD AND CONNECTED TO A KURTZ BAG, SALINE LOCK TO THE RFA INTACT AND PATENT, CLINIMIX AT 42ML/HR INFUSING BY THE IV PUMP INTO THE GURMEET PICC LINE, ANTERIOR RT UPPER CHEST TUBE INTACT AND TO SUCTION, PIG TAIL CATHETER TO THE RT SIDE OF THE BACK AND CONNECTED TO ACCORDION DRAIN BAG, PIG TAIL CATHETER TO THE LEFT SIDE OF THE BACK AND CONNECTED TO ATRIUM AND SUCTION, WILL CONTINUE TO MONITOR AND GIVE REPORT TO THE NEXT SHIFT
--- NOTE | 2020-04-14 19:44 | NUR ---
ADMITTED WITH RIGHT PNEUMOTHORAX, ESOPHAGEAL TEAR, KRISTEN, CHRONIC KIDNEY DISEASE WITH OBSTRUCTIVE UROPATHY. ALERT. CONFUSED. INAPPROPRIATE COMMENTS. IGNACIO WELL. NO EDEMA. ALL PULSES WEAK. FEET ARE COLD. ABDOMEN FLAT. NPO DUE TO ESOPHAGEAL TEAR. NUTRITION: TPN
[2020-04-14] MEDS ORDERED: TPN PER PHARMACY IV NR ×8 (20:00)
--- NOTE | 2020-04-14 20:00 | NUR ---
TALKING TO DAUGHTER ON OUR PHONE. CHARGING HIS PHONE. FOUND OXYGEN OFF PATIENT. GOWN OFF. PLACED PATIENT BACK ON 4LNP. GOWN IS ON. TALKED TO HIM IN LENGTH ABOUT HIS DIAGNOSIS, WHY HE IS NPO, AND THE PURPOSE OF THE CHEST TUBES. HE IS SHORT TEMPERED. ANXIOUS. CONFUSED. DRY MOUTH. LUNGS CLEAR. REVIEWED HIS MOST RECENT CXR AND INFORMED THE PATIENT OF THE RESULTS. HIS THOUGHTS ARE INCONGRUENT. HIS ACCUSATIONS ARE UNFOUNDED. TRYING TO KEEP HIM CALM.
--- NOTE | 2020-04-14 21:00 | NUR ---
BP CUFF OFF AGAIN. KEEPING OXYGEN ON. WRITING DOWN THINGS. POSTERIOR CHEST TUBES NOT DRAINING. ANTERIOR CHEST TUBE DRAINED 40CC OF WATERY SANGUINOUS FLUID. WARMING UP. PULSES STRONGER. GOOD URINE OUTPUT. SMALL AMOUNT OF SEDIMENT IN URINE. ORAL SWABBING HIS MOUTH EVERY HOUR.
--- NOTE | 2020-04-14 21:27 | NUR ---
5 BEAT RUN OF SVT, SELF LIMITING, FIRST TIME IT HAS HAPPENED. MAGNESIUM LEVEL 2.6 POTASSIUM LEVEL 3.7. AM LABS ORDERED.
--- NOTE | 2020-04-14 22:00 | NUR ---
WENT INTO THE ROOM AND FOUND HIM CHEWING ON THE CLAMP TO HIS RIGHT PERIPHERAL IV. IV REMOVED. OUTDATED. LUNGS CLEAR. ABDOMEN SOFT. SUPRAPUBIC DRAINING WELL. NSR WITH BORDERLINE FIRST DEGREE AV BLOCK. OCCASIONAL PVCS. MORPHINE GIVEN FOR BACK PAIN.
[2020-04-15] VITALS (14 sets, daily range): BP systolic 103–156; BP diastolic 60–131
--- NOTE | 2020-04-15 | NUR ---
ORIENTED TO SELF. INAPPROPRIATE CONVERSATIONS. SUBJECT CONTENT DOES NOT APPLY OR IS USED CONGRUENTLY FROM ONE SENTENCE TO ANOTHER. HE HAD TAKEN LEADS OFF AND THROWN THEM ON THE FLOOR. BLOOD PRESSURE CUFF WAS OFF. PULSE OX NOT PICKING UP. FOAM DRESSING FROM LEFT ELBOW FOUND ON FLOOR. OXYGEN FOUND OFF. REORIENTATION DOES NOT LAST. HE OFTEN TURNS SUBJECT MATTER TO NEGATIVE CONNOTATIONS. OCCASIONAL PVCS. HAD THE CLAMP OF HIS PERIPHERAL IV IN HIS MOUTH CHEWING ON IT CLAIMING THAT HE WAS HUNGRY. IV REMOVED AND BANDAID APPLIED. YOU CAN TELL ON HIS OXYGEN NASAL CANNULA THAT HE HAS BEEN CHEWING ON IT. THE ONLY CHEST TUBE THAT IS DRAINING IS THE NEW RIGHT ANTERIOR CHEST TUBE. NO CREPITUS. NO AIR LEAK IN ATRIUM. ACCORDIAN DRAIN IS TO THE RIGHT POSTERIOR CHEST TUBE. THERE IS NO DRNG.
[2020-04-15] MEDS: ALBUTEROL SULF 2.5 MG/0.5ML(0.5%) NEB SOLN NEB SCH ×6 (02:00→22:15)
[2020-04-15] MEDS: ACETYLCYSTEINE 10 %(100MG/ML) SOL 4ML NEB SCH ×6 (02:00→22:16)
[2020-04-15] MEDS: IPRATROPIUM BROM 0.5 MG/2.5ML INH SOL NEB SCH ×6 (02:00→22:10)
--- NOTE | 2020-04-15 04:00 | NUR ---
PATIENT TOOK OXYGEN, SAT PROBE AND BLOOD PRESSURE CUFF OFF. CHEST TUBES INTACT. CONFUSED. YET, HE DOES KNOW SOME FACTS. VERY DISBELIEVING. LUNGS CLEAR. AM LABS DRAWN. PATIENT TURNS HIMSELF. IV PATENT.
[2020-04-15] MEDS: PIPERACILLIN-TAZOB 2.25GM 50 ML IV SCH ×4 (06:01→17:42)
[2020-04-15] MEDS: InsuLIN REG 1unit/0.01ml Soln (100units/ml) SC SCH ×4 (06:02→18:07)
[2020-04-15] MEDS: ACCU-CHEK COMFORT CURVE STRIP VI SCH ×4 (06:03→17:43)
[2020-04-15] MEDS: OCTREOTIDE ACETATE 100 MCG/ML VL SUBCUT SCH ×3 (06:04→22:41)
[2020-04-15 06:34] LABS: Potassium 3.2 mmol/L (3.5-5.1)
[2020-04-15 06:44] LABS: Albumin 1.8 g/dL (3.4-5.0); BUN/Creatinine Ratio 29.6; Bilirubin, Total 0.5 mg/dL (0.2-1.0); Calcium 7.8 mg/dL (8.5-10.1); Magnesium 2.6 mg/dL (1.6-2.6); Phosphorus 3.6 mg/dL (2.5-4.90); Total Protein 5.3 g/dL (6.4-8.2)
--- NOTE | 2020-04-15 07:45 | NUR ---
Opening Shift Note Assumed care of patient, awake and alert with periods of confusion. Walked in the room for initial assessment. Bubbling noted on atrium, RT lateral chest tube tubing disconnected, re- connected THAI, no S/S of distress/SOB or pain, oxygen saturation 98% at 4 LPM oxygen via nasal cannula, no crepitus noted on chest tube site. Paged hospitalist, awaiting call back. See interventions for complete assessment. Bed locked on low position, side rails up x2, bed alarms on at all times, call [facility] within reach, instructed on POC and to call for assist PRN, will continue to monitor for changes Q1hr and PRN.
--- NOTE | 2020-04-15 09:00 | NUR ---
Dr Rich called back, chest xray done, no pneumothorax. Will continue to monitor.
[2020-04-15] MEDS: BUMETANIDE 2.5mg/10ml (0.25 mg/ml) INJ IV SCH (09:24)
[2020-04-15] MEDS: PANTOPRAZOLE 40 MG/10 ML VIAL INJ IV SCH ×2 (09:24→22:41)
[2020-04-15] MEDS: LEVOTHYROXINE SODIUM 100 MCG/5 ML INJ IV SCH (09:25)
[2020-04-15] MEDS: LINEZOLID 600MG/300ML 300 ML IV SCH ×2 (09:25→22:41)
[2020-04-15] MEDS: SODIUM CHLOR 0.9% PF (SALINE LOCK) 10ML VIAL/SYR IV SCH ×2 (09:25→22:00)
[2020-04-15] MEDS: MORPHINE SULF INJ 2 MG/ML SYRINGE 1ML IV PRN (09:26)
[2020-04-15] MEDS: POTASSIUM CHL 20MEQ/100ML 100 ML IV SCH ×2 (11:42→14:41)
--- NOTE | 2020-04-15 16:16 | NUR ---
Spoke to patient's daughter Stephanie over the phone. Updated on patient's status and POC, verbalized understanding. All questions and concerns addressed.
--- NOTE | 2020-04-15 17:30 | NUR ---
Mediastinal chest tube drain 15ml, sanguinous Posterior chest tube, no drain RT lateral chest tube, 100ml, serosanguinous
--- NOTE | 2020-04-15 19:50 | NUR ---
ADMITTED ON 04/09/2020. DIAGNOSIS: NSTEMI, SEVERE ACUTE ON CHRONIC CHF, ARF AND PNEUMOTHORAX. CURRENTLY HAS 3 TUBES IN CHEST, ONE IS A MEDIASTINAL DRAIN TO ACCORDIAN BAG. LEFT POSTERIOR CHEST TUBE AND RIGHT ANTERIOR CHEST TUBE TO 20CM OF DRY ATRIUM PRESSURE. NO AIR LEAK. TRANSFER TO [facility] WAS DENIED DUE TO INSURANCE. ESOPHAGEAL TEAR NOTED ON IMAGING. DR CARLIN CONSULTED FOR THAT. NPO. NUTRITION: 3RD DAY OF TPN. ON SANDOSTATIN. ELBOWS ARE RED. PICC LINE RIGHT ARM. OFF LEVOPHED NOW FOR DAY AND A HALF. SBP STABLE.
[2020-04-15] MEDS ORDERED: TPN PER PHARMACY IV NR ×8 (20:00)
--- NOTE | 2020-04-15 20:00 | NUR ---
KEPT TAKING HIS OXYGEN OFF. REMINDED TO KEEP IT ON. DOES DESATURATE INTO THE 80S. ALL CHEST TUBE PORTS TAPED AND SECURE. MEDIASTINAL DRAIN, NO DRNG. LEFT POSTERIOR CHEST TUBE 3CC OF DRNG. RIGHT ANTERIOR CHEST TUBE DRAINED 60CC OF WATERY RED DRNG.
--- NOTE | 2020-04-15 22:00 | NUR ---
A LITTLE MORE QUIET TONIGHT. REMAINS CONFUSED. KNOWS NAME AND WHO THE PRESIDENT IS. OFF THE WALL COMMENTS ARE UNENDING. INFORMED THAT WE WILL BE MOVING UP TO [facility] AND HE IMMEDIATELY TRIED TO SIT UP AND THROW HIS LEGS OUT OF BED. STATED TO ME" I'M TRYING TO GET TO MY NEW BED". NO CREPITUS. DRESSINGS SECURE. PICC LINE PATENT. ANTIBIOTIC INFUSING . TPN AT 45CC/HR. DENIES PAIN. ALL EXTREMITIES ARE ACTIVELY MOVING. BORDERLINE FIRST DEGREE AV BLOCK. OCCASIONAL PVCXS.
--- NOTE | 2020-04-15 22:58 | NUR ---
ATTEMPTED TO CALL REPORT. RN IN COVID ROOM, WILL CALL ME BACK.
[2020-04-16] VITALS (10 sets, daily range): BP systolic 121–151; BP diastolic 70–117
[2020-04-16] MEDS: ACCU-CHEK COMFORT CURVE STRIP VI SCH ×4 (00:13→18:29)
[2020-04-16] MEDS: InsuLIN REG 1unit/0.01ml Soln (100units/ml) SC SCH ×4 (00:14→18:00)
[2020-04-16] MEDS: PIPERACILLIN-TAZOB 2.25GM 50 ML IV SCH ×4 (00:27→18:31)
--- NOTE | 2020-04-16 00:30 | NUR ---
264 READY . REPORT CALLED TO DALIA WEBSTER.
--- NOTE | 2020-04-16 01:23 | NUR ---
TRANSPORTED PATIENT TO [facility] ROOM 264 PER BED AND ON BEDSIDE MONITOR. PLACED IN ROOM. ATTACHED TO MONITOR. VITAL SIGNS TAKEN AND CONSISTENT WITH PREVIOUS VITAL SIGNS. BOTH CHEST TUBES HOOKED TO LOW CONTINUOUS WALL SUCTION. CONNECTIONS TAPED. ATRIUM PRESSURE AT 20CM. NO AIR LEAK. TIDALING. KURTZ IN DOWN POSITION. ACCORDIAN DRAIN FROM MEDIASTINAL TUBE IS IN A NONPRESSURED POSITION. IV SITE SHOWS NO REDNESS, DRNG OR SWELLING. TPN RESTARTED AND A TKO SETUP WITH THE ANTIBIOTIC GOING.
--- NOTE | 2020-04-16 01:40 | NUR ---
Pt transferred from ICU to [facility] by Alayna RN and [facility]field SWIFT. Pt alert and introduced to primary RN and oriented to unit and equipment. Oral care given. Assumed care of patient. Chest tubes hooked to suction and accordion chest tube recompressed to assure patency. Will continue to monitor.
[2020-04-16] MEDS: ACETYLCYSTEINE 10 %(100MG/ML) SOL 4ML NEB SCH ×6 (02:00→22:17)
[2020-04-16] MEDS: IPRATROPIUM BROM 0.5 MG/2.5ML INH SOL NEB SCH ×6 (02:00→22:17)
[2020-04-16] MEDS: ALBUTEROL SULF 2.5 MG/0.5ML(0.5%) NEB SOLN NEB SCH ×6 (02:00→22:17)
[2020-04-16] MEDS: MORPHINE SULF INJ 2 MG/ML SYRINGE 1ML IV PRN ×3 (05:16→20:42)
[2020-04-16] MEDS: OCTREOTIDE ACETATE 100 MCG/ML VL SUBCUT SCH ×3 (06:58→21:43)
--- NOTE | 2020-04-16 07:00 | NUR ---
REPORT RECEIVED FROM METAL FILER NURSE. PATIENT RESTING IN BED AT THIS TIME. RESPIRATIONS EVEN AND UNLABORED. CHEST TUBE SITES X3 NOTED WITH INTACT DRESSINGS AND NO CREPITUS OR REDNESS NOTED, NO AIR LEAK NOTED TO ATRIUMS, CONNECTED TO SUCTION. NO SIGNS OF ACUTE DISTRESS NOTED. CALL LIGHT IN REACH, BED IN LOW POSITION.
[2020-04-16 07:54] LABS: Basophils # (auto) 0 10 ^3/uL (0-0.2); Basophils % (auto) 0.1 % (0.0-2.0); Eosinophils # (auto) 0.2 10 ^3/uL (0-0.8); Hemoglobin 9.3 g/dL (13.5-17.5); Lymphocytes # (auto) 0.3 10 ^3/uL (0.4-5.4); Nucleated Red Blood Cells % 0.2 %
[2020-04-16 07:56] LABS: Hematocrit 30.3 % (41.0-53.0); Lymphocytes % (auto) 2.7 % (10.0-50.0); Mean Corpuscular Hemoglobin 24.9 pg (28.0-32.0); Mean Corpuscular Hgb Conc. 30.7 g/dL (32.0-36.0); Mean Corpuscular Volume 81.2 fL (80.0-100.0); Monocytes # (auto) 1.1 10 ^3/uL (0-1.3); Monocytes % (auto) 10.9 % (0.0-12.0); Neutrophils # (auto) 8.3 10 ^3/uL (1.6-8.6); Neutrophils % (auto) 84.3 % (37.0-80.0); Platelet Count (auto) 109 10^3/uL (140-450); Red Blood Cells 3.74 10^6/uL (4.5-5.90); Red Cell Distribution Width 18.3 % (11.8-14.3); White Blood Cell 9.9 10^3/uL (4.4-10.8)
[2020-04-16 08:09] LABS: Potassium 3.3 mmol/L (3.5-5.1)
[2020-04-16 08:27] LABS: Albumin 1.7 g/dL (3.4-5.0); BUN/Creatinine Ratio 27.8; Bilirubin, Total 0.5 mg/dL (0.2-1.0); Calcium 7.9 mg/dL (8.5-10.1); Magnesium 2.3 mg/dL (1.6-2.6); Phosphorus 2.7 mg/dL (2.5-4.90)
[2020-04-16] MEDS: PANTOPRAZOLE 40 MG/10 ML VIAL INJ IV SCH ×2 (10:09→21:31)
[2020-04-16] MEDS: LEVOTHYROXINE SODIUM 100 MCG/5 ML INJ IV SCH (10:10)
[2020-04-16] MEDS: LINEZOLID 600MG/300ML 300 ML IV SCH ×2 (10:11→21:30)
[2020-04-16] MEDS: SODIUM CHLOR 0.9% PF (SALINE LOCK) 10ML VIAL/SYR IV SCH ×2 (10:11→21:33)
[2020-04-16] MEDS: BUMETANIDE 2.5mg/10ml (0.25 mg/ml) INJ IV SCH (10:11)
[2020-04-16] MEDS: SOD CHL 0.45% 1,000 ML IV SCH ×2 (10:12→22:35)
[2020-04-16] MEDS: POTASSIUM CHL 20MEQ/100ML 100 ML IV SCH ×2 (10:12→11:30)
--- NOTE | 2020-04-16 10:30 | NUR ---
DR IRAHETA AT BEDSIDE TO ASSESS PATIENT AND DISCUSS PLAN OF CARE. ALL ORDERS NOTED IN CHART.
--- NOTE | 2020-04-16 12:50 | NUR ---
Nutrition Followup Note Wt 70.0kg Pt sleeping at time of rounds with no family at bedside. Pt with esophageal tear per RN and MD notes, continue alternate nutrition. Pt with TPN running at 45ml/hr at time of rounds to provide 1150 kcal, 50g protein, 950 NCP. TPN order provides 50-55% of energy needs and 94-119% of protein needs. Pt with TPN order of 51ml/hr to provide 1340kcal and 55g of protein to better meet energy needs. Est energy needs 0802-9380 kcal (30-33kcal/kg BW 70.3kg) Est protein needs 42-53g (0.6-0.75g/kg BW 70.3kg d/t ARF, elevated RFT, no HD, adjust if HD noted or initiated) Will reassess prn Lab: Gluc 129H, BUN 72H, Creat 2.59H, Alb 1.7L, Ca 7.9L BM: Pt with 1 BM noted 04/13 in RN doc Skin: BS 19 low risk, full details in healthcare insurance sales agent doc. PES: Altered nutrition related labs r/t current and chronic medical condition aeb pt with elevated RFTs, LFTs, hyperglycemia, severe hypoalb Comments: 1) Continue to monitor po status, labs, skin 2) Refer pt to OPD on DC 3) Continue current plan of care Expected Outcomes/Goals: 1) Advance TPN to meet >75% of needs 2) When medically feasible advance diet to oral 3) If oral diet is recommended consider Renal Specific 50g protein unless pt is on HD 4) f/u 2-3 days
--- NOTE | 2020-04-16 13:38 | NUR ---
DRESSING CHANGE DRESSING CHANGED TO RIGHT LATERAL CHEST USING ASEPTIC TECHNIQUE. PATIENT TOLERATED WELL. BED LINENS CHANGED WELL.
--- NOTE | 2020-04-16 15:40 | NUR ---
LEFT MESSAGE FOR DAUGHTER FE TO CALL AND SPEAK TO PATIENT PER PATIENT REQUEST. AWAITING CALL BACK.
[2020-04-16] MEDS ORDERED: TPN PER PHARMACY IV NR ×8 (20:00)
--- NOTE | 2020-04-16 20:00 | NUR ---
Temp 100.6 not accurate. Pt afebrile but in pain. Morphine given. Will continue to monitor.
[2020-04-17] VITALS: BP 122/84
[2020-04-17] MEDS: PIPERACILLIN-TAZOB 2.25GM 50 ML IV SCH ×2 (00:21→05:27)
[2020-04-17] MEDS: MORPHINE SULF INJ 2 MG/ML SYRINGE 1ML IV PRN ×3 (00:22→10:30)
[2020-04-17] MEDS: IPRATROPIUM BROM 0.5 MG/2.5ML INH SOL NEB SCH ×6 (01:56→23:12)
[2020-04-17] MEDS: ALBUTEROL SULF 2.5 MG/0.5ML(0.5%) NEB SOLN NEB SCH ×6 (01:56→23:12)
[2020-04-17] MEDS: ACETYLCYSTEINE 10 %(100MG/ML) SOL 4ML NEB SCH ×6 (01:56→23:12)
[2020-04-17 04:00] VITALS: BP 118/76
[2020-04-17] MEDS: OCTREOTIDE ACETATE 100 MCG/ML VL SUBCUT SCH ×3 (05:28→22:49)
[2020-04-17] MEDS: ACCU-CHEK COMFORT CURVE STRIP VI SCH ×4 (05:29→18:11)
--- NOTE | 2020-04-17 05:30 | NUR ---
Pt making weird noise blowing with pursed lips and making a trumpet sound. RN investigated what the pt was doing and where the sound was coming from. Pt was purposely trying to blow air out full pressure with mouth closed and was making a trumpet sound out of his chest. Pt had removed dressing and created a leak in atrium. Petroleum jelly dressing applied to encircle chest tube at insertion site, dry 4x4 applied on top and pressure held, atrium still had an air leak. Pressure foam tape applied, chest tube clamped, and suction taken off atrium. Stat CXR ordered. Will continue to monitor.
[2020-04-17] MEDS: InsuLIN REG 1unit/0.01ml Soln (100units/ml) SC SCH ×4 (06:00→18:00)
[2020-04-17 06:20] LABS: Basophils # (auto) 0 10 ^3/uL (0-0.2); Basophils % (auto) 0.1 % (0.0-2.0); Eosinophils # (auto) 0.2 10 ^3/uL (0-0.8); Hematocrit 28.3 % (41.0-53.0); Hemoglobin 8.8 g/dL (13.5-17.5); Lymphocytes # (auto) 0.4 10 ^3/uL (0.4-5.4); Mean Corpuscular Volume 80.9 fL (80.0-100.0); Platelet Count (auto) 92 10^3/uL (140-450)
[2020-04-17 06:23] LABS: Eosinophils % (auto) 2.3 % (0.0-7.0); Lymphocytes % (auto) 4.6 % (10.0-50.0); Mean Corpuscular Hemoglobin 25.2 pg (28.0-32.0); Mean Corpuscular Hgb Conc. 31.1 g/dL (32.0-36.0); Monocytes % (auto) 11.8 % (0.0-12.0); Neutrophils # (auto) 7.1 10 ^3/uL (1.6-8.6); Neutrophils % (auto) 81.2 % (37.0-80.0); Nucleated Red Blood Cells % 0.1 %; Red Blood Cells 3.49 10^6/uL (4.5-5.90); Red Cell Distribution Width 18.9 % (11.8-14.3); White Blood Cell 8.7 10^3/uL (4.4-10.8)
[2020-04-17 06:37] LABS: Potassium 3.3 mmol/L (3.5-5.1)
--- NOTE | 2020-04-17 06:45 | NUR ---
Radiology reported new small pneumothorax to right chest. Will continue to monitor and page .
[2020-04-17 06:48] LABS: Albumin 1.5 g/dL (3.4-5.0); Bilirubin, Total 0.6 mg/dL (0.2-1.0); Calcium 7.1 mg/dL (8.5-10.1); Phosphorus 2.4 mg/dL (2.5-4.90); Total Protein 4.6 g/dL (6.4-8.2)
--- NOTE | 2020-04-17 07:45 | NUR ---
OPENING SHIFT NOTE: Report received from NOC RNMassiel. Assumed care of patient. Received patient lying in bed, connected to bedside monitor with alarms in place. Patient is alert and denies pain. No s/s of distress noted. Patient on 4L NC with O2 sats 96%. Patient with two chest tubes. Right anterior chest tube has been clamped since 529 this am. Left posterior chest tube to -20cm suction with scant serosanguineous drainage. Patient with a mediastinal drain with scant serous drainage. Patient with suprapubic catheter draining clear yellow output. Patient with TL PICC line to right upper arm, TPN infusing at 51ml/hr. All ports flush. Dressing C/D/I. Bed in lowest position, rails x4 up for safety and call light within reach. Updated on plan of care. Will continue to monitor q1hr/PRN.
[2020-04-17 08:00] VITALS: BP 139/83
--- NOTE | 2020-04-17 08:10 | NUR ---
Spoke to Dr. Vick regarding chest tube air leak and status of CXR. MD made aware and ordered to continue to monitor and stated Pt is too unstable to do any interventions at this time. Reported order to AM shift RN Viviana and charge entry specialist. Report given, care endorsed.
[2020-04-17] MEDS ORDERED: POTASSIUM CHLORIDE 10 MEQ in SOD CHL 0.45% 1,000 ML IV SCH (08:45)
[2020-04-17] MEDS ORDERED: POTASSIUM CHLORIDE 20 MEQ, LIDOCAINE 1% (LOCAL ANESTH.) 2 ML in SODIUM CHL 0.9% 100 ML IV ONE (09:45)
[2020-04-17] MEDS: BUMETANIDE 2.5mg/10ml (0.25 mg/ml) INJ IV SCH ×2 (10:00→10:28)
[2020-04-17] MEDS: SODIUM CHLOR 0.9% PF (SALINE LOCK) 10ML VIAL/SYR IV SCH ×2 (10:00→22:49)
[2020-04-17] MEDS: PANTOPRAZOLE 40 MG/10 ML VIAL INJ IV SCH ×2 (10:28→22:48)
[2020-04-17] MEDS: LINEZOLID 600MG/300ML 300 ML IV SCH (10:30)
[2020-04-17] MEDS: LEVOTHYROXINE SODIUM 100 MCG/5 ML INJ IV SCH (10:30)
--- NOTE | 2020-04-17 10:30 | NUR ---
MD Dr Rich at bedside to see patient. made aware of results of CXR and current status of CT. Orders received to unclamp chest tube and place back on -20cm suction.
[2020-04-17] MEDS: POTASSIUM CHLORIDE 10 MEQ in SOD CHL 0.45% 1,000 ML IV SCH ×2 (10:35→21:19)
--- NOTE | 2020-04-17 11:15 | NUR ---
MD Dr Reza to see patient. Orders received.
[2020-04-17] MEDS ORDERED: VANCOMYCIN PER PHARMACY 0 MG IV SCH (11:45)
[2020-04-17 12:00] VITALS: BP 150/95
[2020-04-17] MEDS: MEROPENEM 1GM IVPB 100 ML IV SCH (15:38)
[2020-04-17 15:50] VITALS: BP 105/88
[2020-04-17] MEDS ORDERED: VANCOMYCIN 1GM/250ML 250 ML IV SCH (17:00)
--- NOTE | 2020-04-17 19:00 | NUR ---
CLOSING SHIFT NOTE: Patient resting in bed, no s/s of distress noted. Patient continues to be restless in bed, and demanding of staff. Patient with no output throughout shift in either CT or mediastinal drain. Patient with TPN and IVF infusing to right upper arm PICC. Report to be given to LUCHO GÓMEZ.
[2020-04-17 20:00] VITALS: BP 97/58
[2020-04-17] MEDS ORDERED: TPN PER PHARMACY IV NR ×9 (20:00)
--- NOTE | 2020-04-17 21:00 | NUR ---
CHEST TUBE ASSESSMENT AFTER REMOVING THE DRESSING FOR ASSESSMENT OF RIGHT UPPER/LATERAL CHEST TUBE, THE TUBE WAS COMPLETELY OUT THE CHEST TUBE, TUBE IS NOT STITCHED IN PLACE, THE INCISION IS CLOSED AND SCAB IS FORMED AROUND THE INCISION. IMMEDIATELY APPLIED PETROLEUM GAUZE WITH STRETCH TAPE. SKIN AROUND THE INCISION IS CREPITUS UPON PALPITATION. LEFT POSTERIOR CHEST TUBE IS NOT CONNECTED TO SUCTIONING, RECONNECTED TO SUCTIONING. RIGHT POSTERIOR CHEST TUBE IS CONNECTED TO SUCTIONING, NO DRAINING NOTED. CHEST TUBE INCISIONS ARE FREE OF DRAINAGE AND REDNESS. SITES ARE WORM TO TOUCH.
--- NOTE | 2020-04-17 21:10 | NUR ---
PAGED HOSPITALIST REGARDING CHEST TUBE OUT PER LUIS GUZMAN PUT PETROLEUM GAUZE AND COVER WITH TEGADERM AND LET KYUNG GUZMAN ADDRESS THE ISSUE DURING THE DAY. REQUESTED CHEST XRAY PER RN, ORDER RECEIVED NO SIGN OF RESPIRATORY DISTRESS, PT SATURATING IN 95% AND ABOVE.
[2020-04-18] VITALS (7 sets, daily range): BP systolic 113–146; BP diastolic 66–96
[2020-04-18] MEDS: ACCU-CHEK COMFORT CURVE STRIP VI SCH ×4 (00:01→17:56)
[2020-04-18] MEDS: MEROPENEM 1GM IVPB 100 ML IV SCH ×2 (01:00→12:42)
[2020-04-18] MEDS: POTASSIUM CHLORIDE 10 MEQ in SOD CHL 0.45% 1,000 ML IV SCH (01:40)
[2020-04-18] MEDS: IPRATROPIUM BROM 0.5 MG/2.5ML INH SOL NEB SCH ×6 (02:18→22:24)
[2020-04-18] MEDS: ALBUTEROL SULF 2.5 MG/0.5ML(0.5%) NEB SOLN NEB SCH ×6 (02:19→22:24)
[2020-04-18] MEDS: ACETYLCYSTEINE 10 %(100MG/ML) SOL 4ML NEB SCH ×6 (02:19→22:24)
--- NOTE | 2020-04-18 04:20 | NUR ---
PATIENT REFUSING CARES REFUSING BED CHANGE AND BATH
[2020-04-18 04:42] LABS: Basophils # (auto) 0 10 ^3/uL (0-0.2); Basophils % (auto) 0.2 % (0.0-2.0); Eosinophils # (auto) 0.3 10 ^3/uL (0-0.8); Lymphocytes # (auto) 0.6 10 ^3/uL (0.4-5.4); Mean Corpuscular Hemoglobin 25.3 pg (28.0-32.0); Mean Corpuscular Hgb Conc. 31.4 g/dL (32.0-36.0)
[2020-04-18 04:46] LABS: Eosinophils % (auto) 2.6 % (0.0-7.0); Hematocrit 29.8 % (41.0-53.0); Hemoglobin 9.4 g/dL (13.5-17.5); Lymphocytes % (auto) 5.4 % (10.0-50.0); Mean Corpuscular Volume 80.4 fL (80.0-100.0); Monocytes # (auto) 0.9 10 ^3/uL (0-1.3); Monocytes % (auto) 8.4 % (0.0-12.0); Neutrophils % (auto) 83.4 % (37.0-80.0); Platelet Count (auto) 101 10^3/uL (140-450); Red Cell Distribution Width 19.1 % (11.8-14.3); White Blood Cell 10.7 10^3/uL (4.4-10.8)
[2020-04-18 04:55] LABS: Potassium 4.2 mmol/L (3.5-5.1)
[2020-04-18 05:03] LABS: Albumin 1.7 g/dL (3.4-5.0); BUN/Creatinine Ratio 25.9; Bilirubin, Total 0.6 mg/dL (0.2-1.0); Calcium 7.8 mg/dL (8.5-10.1); Phosphorus 2.7 mg/dL (2.5-4.90); Total Protein 5.4 g/dL (6.4-8.2)
[2020-04-18] MEDS: InsuLIN REG 1unit/0.01ml Soln (100units/ml) SC SCH ×4 (06:00→17:55)
[2020-04-18] MEDS: OCTREOTIDE ACETATE 100 MCG/ML VL SUBCUT SCH ×3 (06:11→21:53)
--- NOTE | 2020-04-18 09:20 | NUR ---
Received phone call from Dr. Rich and received new orders to downgrade to Telemetry.
[2020-04-18] MEDS: SOD CHL 0.45% 1,000 ML IV SCH ×2 (09:40→21:52)
[2020-04-18] MEDS: BUMETANIDE 2.5mg/10ml (0.25 mg/ml) INJ IV SCH (09:53)
[2020-04-18] MEDS: PANTOPRAZOLE 40 MG/10 ML VIAL INJ IV SCH ×2 (09:54→21:52)
[2020-04-18] MEDS: LEVOTHYROXINE SODIUM 100 MCG/5 ML INJ IV SCH (09:54)
[2020-04-18] MEDS: SODIUM CHLOR 0.9% PF (SALINE LOCK) 10ML VIAL/SYR IV SCH ×2 (09:54→21:54)
--- NOTE | 2020-04-18 10:07 | NUR ---
I faxed transfer back in network order to [facility]. I called [facility] Combiner Operator Catherine [phone] and left message regarding the transfer request.
--- NOTE | 2020-04-18 11:19 | NUR ---
Nutrition Followup Note Wt 64.5 kg Pt sleeping at time of rounds with no family at bedside. Pt with esophageal tear per RN and MD notes, continue alternate nutrition. Pt with increased TPN order. Pt with TPN running at 56ml/hr at time of rounds to provide 1460 kcal, 60g protein, 1220 NCP. TPN order provides 63-70% of energy needs and 113-143% of protein needs. Est energy needs 9729-4870 kcal (30-33kcal/kg BW 70.3kg) Est protein needs 42-53g (0.6-0.75g/kg BW 70.3kg d/t ARF, elevated RFT, no HD, adjust if HD noted or initiated) Will reassess prn Lab: BUN 57H, Creat 2.20H, GLUC 123H, Ca 7.8L, Alb 1.7L BM: Pt with 1 BM noted 04/13 in RN doc Skin: BS 15 mod risk, full details in hospice home care coordinator doc. PES: Altered nutrition related labs r/t current and chronic medical condition aeb pt with elevated RFTs, LFTs, hyperglycemia, severe hypoalb Comments: 1) Continue to monitor po status, labs, skin 2) Refer pt to OPD on DC 3) Continue current plan of care Expected Outcomes/Goals: 1) Advance TPN to meet >75% of needs 2) When medically feasible advance diet to oral 3) If oral diet is recommended consider Renal Specific 50g protein unless pt is on HD 4) f/u 2-3 days
--- NOTE | 2020-04-18 13:10 | NUR ---
REPORT Report given to CARISSA GÓMEZ who will continue plan of care once patient arrives to room 218A.
--- NOTE | 2020-04-18 13:30 | NUR ---
TRANSFERRED PATIENT Patient transferred to room 218A, Telemetry box on and all belongings to patient.
[2020-04-18] MEDS: MORPHINE SULF INJ 2 MG/ML SYRINGE 1ML IV PRN ×2 (17:34→21:54)
[2020-04-18] MEDS ORDERED: TPN PER PHARMACY IV NR ×9 (20:00)
[2020-04-19] MEDS: ACCU-CHEK COMFORT CURVE STRIP VI SCH ×4 (01:02→17:35)
[2020-04-19] MEDS: MEROPENEM 1GM IVPB 100 ML IV SCH ×2 (01:02→12:16)
[2020-04-19] MEDS: InsuLIN REG 1unit/0.01ml Soln (100units/ml) SC SCH ×4 (01:02→17:35)
--- NOTE | 2020-04-19 01:42 | NUR ---
This RN is covering for the primary RN on lunch. Rounding on the patient and he was found to be getting off the bed setting off the bed alarm. Patient is steady on his feet but connected to multiple lines (two chest tubes, TPN and an antibiotic infusing through a triple lumen PICC line). Patient states he does not care if the chest tubes get dislodged or if anything gets removed improperly, "I don't Fing care, I want to go home," he said. He complained of feeling SOB and that he could not breathe, oxygen at 3 L/min via nasal cannula was found laying on the pillow and replaced, explained to the patient the importance of oxygen and it will help him feel less SOB. "Patient said, "I am so tired of this sh, I'm connected to all this and I can't move." Explained to the patient the risks if the chest tubes become dislodged, he replied, "I don't care." All lines and tubing and dressings were intact. Patient has a superpubic catheter and the coffey bag was found on the floor, coffey bag was replaced and hung below bladder, it is patent and draining. Patient was assisted back into bed and repositioned for comfort. Bed alarm is on and call light is within reach. Instructed patient to call for assistance, will continue to monitor.
[2020-04-19] MEDS: MORPHINE SULF INJ 2 MG/ML SYRINGE 1ML IV PRN ×2 (02:17→21:45)
[2020-04-19] MEDS: ACETYLCYSTEINE 10 %(100MG/ML) SOL 4ML NEB SCH ×4 (02:27→14:23)
[2020-04-19] MEDS: ALBUTEROL SULF 2.5 MG/0.5ML(0.5%) NEB SOLN NEB SCH ×5 (02:27→18:51)
[2020-04-19] MEDS: IPRATROPIUM BROM 0.5 MG/2.5ML INH SOL NEB SCH ×5 (02:27→18:51)
[2020-04-19 04:08] VITALS: BP 149/96
[2020-04-19 05:00] VITALS: BP 158/69
--- NOTE | 2020-04-19 06:10 | NUR ---
PATIENT FOUND LYING IN BED ON ROOM AIR WITH NO S/S OF DISTRESS NOTED. PIG TAIL CONNECTOR FOUND ON FLOOR DISCONNECTED FROM PATIENT. CLEANED CONNECTION SITE AND REAPPLIED TO PATIENT'S PIGTAIL CATHETER. PATIENT IN NO RESPIRATORY DISTRESS. AWAKE AND ALERT X4.
[2020-04-19] MEDS: OCTREOTIDE ACETATE 100 MCG/ML VL SUBCUT SCH ×3 (06:18→23:10)
--- NOTE | 2020-04-19 06:57 | NUR ---
CHEST TUBE OUTPUT MINIMAL TO NONE OVERNIGHT. RIGHT SIDED CHEST TUBE WITH SCANT STRAW COLORED DRAINAGE NOTED IN DRAINAGE BAG. DRESSING REMAINS INTACT. RIGHT SIDED CHEST TUBE TO WATER SEAL WITH NO DRAINAGE OVER NIGHT. DRESSING REMAINS INTACT AT INSERTION SITE.
[2020-04-19 07:18] LABS: Basophils # (auto) 0 10 ^3/uL (0-0.2); Basophils % (auto) 0.4 % (0.0-2.0); Eosinophils # (auto) 0.3 10 ^3/uL (0-0.8); Mean Corpuscular Volume 81.6 fL (80.0-100.0)
[2020-04-19 07:21] LABS: Eosinophils % (auto) 3.1 % (0.0-7.0); Hematocrit 29.5 % (41.0-53.0); Lymphocytes # (auto) 0.7 10 ^3/uL (0.4-5.4); Lymphocytes % (auto) 7.1 % (10.0-50.0); Mean Corpuscular Hgb Conc. 30.7 g/dL (32.0-36.0); Monocytes % (auto) 10.3 % (0.0-12.0); Neutrophils # (auto) 7.6 10 ^3/uL (1.6-8.6); Neutrophils % (auto) 79.1 % (37.0-80.0); Platelet Count (auto) 99 10^3/uL (140-450); Red Blood Cells 3.61 10^6/uL (4.5-5.90); Red Cell Distribution Width 19.2 % (11.8-14.3); White Blood Cell 9.6 10^3/uL (4.4-10.8)
[2020-04-19 07:28] LABS: INR 1.31 (0.9-1.15)
[2020-04-19 07:33] LABS: Potassium 4.5 mmol/L (3.5-5.1)
[2020-04-19 07:44] LABS: Albumin 1.7 g/dL (3.4-5.0); BUN/Creatinine Ratio 23.4; Bilirubin, Total 0.6 mg/dL (0.2-1.0); Calcium 7.9 mg/dL (8.5-10.1); Magnesium 2.3 mg/dL (1.6-2.6); Phosphorus 3.3 mg/dL (2.5-4.90); Pre Albumin 8.3 mg/dL (20.0-40.0); Total Protein 5.6 g/dL (6.4-8.2)
--- NOTE | 2020-04-19 07:58 | NUR ---
Opening Note Assumed pt care from NOC RN. Pt is a/ox4 with no s/s of distress or SOB. Pt is currently laying in bed with no complaints at this time. Iniguez is present, free of kinks and is draining to gravity. Chest tubes present x2. L CT is placed on collecting chamber, no output noted. R CT is placed on accordion drain, minimal drainage present. Pt is currently on 4L via NC. TPN is currently running at 60mL/hr. Discussed POC with pt and pending tx to higher level of care. Safety measures maintained with call light within reach, bed in lowest position and side rails up. Will continue to monitor.
[2020-04-19 09:00] VITALS: BP 170/85
[2020-04-19] MEDS: PANTOPRAZOLE 40 MG/10 ML VIAL INJ IV SCH ×2 (09:00→21:47)
[2020-04-19] MEDS: BUMETANIDE 2.5mg/10ml (0.25 mg/ml) INJ IV SCH (09:00)
[2020-04-19] MEDS: LEVOTHYROXINE SODIUM 100 MCG/5 ML INJ IV SCH (09:00)
[2020-04-19] MEDS: SODIUM CHLOR 0.9% PF (SALINE LOCK) 10ML VIAL/SYR IV SCH ×2 (09:00→21:47)
--- NOTE | 2020-04-19 09:00 | NUR ---
Elevated BP Reported BP of 170/85. Reassessed pt, currently at 155/92 with a HR of 75. Will continue to monitor.
[2020-04-19] MEDS: SOD CHL 0.45% 1,000 ML IV SCH ×2 (10:15→23:54)
--- NOTE | 2020-04-19 11:55 | NUR ---
Pt Slightly Aggressive Upon rounds, pt found to be sitting at edge of bed attempting to ambulate. At this time, pt was pulling at various tubes; including chest tubes and PICC lines. Educated pt on need to be careful with various lines; pt responded using vulgar terms regarding all the lines. Pt then stated that he needed to take a shower. Pt again provided on importance of various lines. Completed a linen change and cleaned pt at this time. Re-enforced dressing to pt's L CT. Will continue to monitor sites and provide frequent education on need to be careful regarding lines and purpose of lines.
[2020-04-19 13:00] VITALS: BP 141/95
--- NOTE | 2020-04-19 15:08 | NUR ---
Dr Zimmerman at Bedside MD to see pt. Discussed POC with pt. Still pending transfer to higher level of care. No new orders at this time. Will continue to monitor.
[2020-04-19 17:00] VITALS: BP 127/86
--- NOTE | 2020-04-19 18:10 | NUR ---
Chest Tube Output Minimal to no drainage during this shift. Serous drainage noted in pt's R CT collection bag; no change from beginning of shift; tubes are patent and free of kinks. No additional drainage noted to pt's L chest tube chamber. Pt knocked chamber down multiple times today while attempting to move, therefore the pre-existing drainage has dispersed to the other chambers. The present drainage is sanguinous in nature. Tube are free of kinks and are patent. Will continue to monitor.
[2020-04-19] MEDS ORDERED: TPN PER PHARMACY IV NR ×9 (20:00)
[2020-04-19 22:00] VITALS: BP 144/86
[2020-04-20] MEDS: ACCU-CHEK COMFORT CURVE STRIP VI SCH ×4 (00:04→17:23)
[2020-04-20] MEDS: InsuLIN REG 1unit/0.01ml Soln (100units/ml) SC SCH ×4 (00:09→17:23)
--- NOTE | 2020-04-20 00:20 | NUR ---
Respiratory note: PT REFUSED [place] TX AT THIS TIME. PT WANTED TO CONTINUE SLEEPING.
[2020-04-20] MEDS: MEROPENEM 1GM IVPB 100 ML IV SCH ×2 (01:14→13:44)
[2020-04-20] MEDS: MORPHINE SULF INJ 2 MG/ML SYRINGE 1ML IV PRN ×4 (03:49→21:41)
[2020-04-20 05:00] VITALS: BP 148/86
--- NOTE | 2020-04-20 06:33 | NUR ---
PHARMACY NOTIFIED THAT PATIENTS 0600 MEDICATION SANDOSTATIN 100MCG IN NOT IN PYXIS.
--- NOTE | 2020-04-20 06:44 | NUR ---
MEDICATION SENT VIA BULLET.
[2020-04-20] MEDS: OCTREOTIDE ACETATE 100 MCG/ML VL SUBCUT SCH ×3 (06:50→21:32)
[2020-04-20] MEDS: IPRATROPIUM BROM 0.5 MG/2.5ML INH SOL NEB SCH ×4 (06:58→18:47)
[2020-04-20] MEDS: ALBUTEROL SULF 2.5 MG/0.5ML(0.5%) NEB SOLN NEB SCH ×4 (06:58→18:47)
[2020-04-20] MEDS: ACETYLCYSTEINE 10 %(100MG/ML) SOL 4ML NEB SCH ×4 (06:59→18:48)
[2020-04-20 07:32] LABS: Calcium 7.7 mg/dL (8.5-10.1)
[2020-04-20 07:39] LABS: Albumin 1.6 g/dL (3.4-5.0); BUN/Creatinine Ratio 23.5; Bilirubin, Total 0.6 mg/dL (0.2-1.0); Magnesium 2.4 mg/dL (1.6-2.6); Phosphorus 3.6 mg/dL (2.5-4.90); Total Protein 5.8 g/dL (6.4-8.2)
--- NOTE | 2020-04-20 07:39 | NUR ---
Opening Note Assumed pt care from NOC RN. Pt is a/ox4 with no s/s of distress or SOB. Pt is currently sitting upright in bed on 3L via NC. Iniguez catheter is present, free of kinks and draining to gravity. Chest tubes are present; L is placed on water chamber, minimal sanguinous drainage present. R is connected to accordion drain, minimal serous fluid present. TPN is currently running at 61mL/HR. Discussed POC with pt and pending transfer. Safety measures maintained with call light within reach, bed in lowest position and side rails up. Will continue to monitor.
--- NOTE | 2020-04-20 08:01 | NUR ---
Dr Zimmerman at Bedside Dr Zimmerman to see pt. Discussed POC with pt. Ordered CT of chest to evaluate esophageal perforation. Pt verbalized understanding. Will continue to monitor.
[2020-04-20] MEDS ORDERED: OMNIPAQUE ORAL SOLN 500ml 12mg/ml PO ONE (08:04)
[2020-04-20 09:00] VITALS: BP 148/87
[2020-04-20] MEDS: PANTOPRAZOLE 40 MG/10 ML VIAL INJ IV SCH ×2 (09:38→21:30)
[2020-04-20] MEDS: LEVOTHYROXINE SODIUM 100 MCG/5 ML INJ IV SCH (09:39)
[2020-04-20] MEDS: BUMETANIDE 2.5mg/10ml (0.25 mg/ml) INJ IV SCH (09:39)
[2020-04-20] MEDS: SODIUM CHLOR 0.9% PF (SALINE LOCK) 10ML VIAL/SYR IV SCH ×2 (10:05→21:31)
--- NOTE | 2020-04-20 10:28 | NUR ---
Pt Taken Down to CT Taken to CT via stretcher. Addendum: 04/20/20 at 1050 by MOIRA HAGEN RN RN PT BACK ON UNIT FROM CT A/OX4 WITH NO S/S OF DISTRESS. PLACED BACK ON SUCTION. WILL CONTINUE TO MONITOR.
[2020-04-20] MEDS: SOD CHL 0.45% 1,000 ML IV SCH (11:01)
--- NOTE | 2020-04-20 12:50 | NUR ---
Tele Box After pt came back from CT, missing tele box #[id number]. Checked pt's bed and room for monitor; unable to located. Notified radiology staff. Will attempt to locate. Addendum: 04/20/20 at 1351 by MOIRA HAGEN RN RN Tele box [id number] retrieved. Sent back to ICU, staff notified.
[2020-04-20 13:00] VITALS: BP 138/86
--- NOTE | 2020-04-20 16:22 | NUR ---
Nutrition Followup Notes Wt 63.4 kg Pt was sleeping with no family at bedside when rounded this morning. Pt with TPN running at 61 ml/hr to provide 1730 kcal, 60g protein, 1490 NPCs. Pt with adequate PN support as it provides 75-82% of est energy needs and 120-143% of est protein needs. Will continue to monitor PO status, skin status, pertinent labs and weight trends. Will f/u in 2-3 days. Est energy needs 6700-7248 kcal (30-33kcal/kg BW 70.3kg) Est protein needs 42-53g (0.6-0.75g/kg BW 70.3kg d/t ARF, elevated RFT, no HD, adjust if HD noted or initiated) Will reassess prn Lab: BUN 52H, Creat 2.21H, Cl 111H, Alb 1.6L BM: Pt with 1 BM noted 04/19 in RN doc Skin: BS 20 low risk, full details in behavioral health care manager doc. PES: Altered nutrition related labs r/t current and chronic medical condition aeb pt with elevated RFTs, LFTs, hyperglycemia, severe hypoalb Comments: 1) Continue to monitor po status, labs, skin 2) Refer pt to OPD on DC 3) Continue current plan of care
--- NOTE | 2020-04-20 16:56 | NUR ---
Elevated BP Reported BP of 161/84 with a HR of 70 reported. Reassessed pt, pt is currently asymptomatic, current BP is 143/98 with a HR of 69. Will continue to monitor.
[2020-04-20 16:58] VITALS: BP 143/98
[2020-04-20 17:00] VITALS: BP 161/84
--- NOTE | 2020-04-20 19:03 | NUR ---
Chest Tube Output Minimal to no output noted on both chest tubes. L CT has sanguinous drainage present in chamber, no change from beginning of shift. R CT has minimal serous drainage present in bag, no change from this morning.
[2020-04-20] MEDS ORDERED: TPN PER PHARMACY IV NR ×9 (20:00)
[2020-04-20] MEDS: hydrALAZINE HCL 20 MG/ML VL IV PRN (21:31)
[2020-04-20 22:00] VITALS: BP 170/77
[2020-04-21] MEDS: InsuLIN REG 1unit/0.01ml Soln (100units/ml) SC SCH ×5 (00:11→23:36)
[2020-04-21] MEDS: ACCU-CHEK COMFORT CURVE STRIP VI SCH ×5 (00:11→23:32)
[2020-04-21] MEDS: ACETYLCYSTEINE 10 %(100MG/ML) SOL 4ML NEB SCH ×5 (00:43→18:25)
[2020-04-21] MEDS: IPRATROPIUM BROM 0.5 MG/2.5ML INH SOL NEB SCH ×5 (00:43→18:25)
[2020-04-21] MEDS: ALBUTEROL SULF 2.5 MG/0.5ML(0.5%) NEB SOLN NEB SCH ×5 (00:43→18:25)
[2020-04-21] MEDS: MEROPENEM 1GM IVPB 100 ML IV SCH ×2 (01:10→12:41)
[2020-04-21] MEDS: MORPHINE SULF INJ 2 MG/ML SYRINGE 1ML IV PRN ×3 (04:09→21:10)
[2020-04-21 05:30] VITALS: BP 123/75
[2020-04-21] MEDS: OCTREOTIDE ACETATE 100 MCG/ML VL SUBCUT SCH ×3 (06:39→21:10)
[2020-04-21 07:19] LABS: Albumin 1.6 g/dL (3.4-5.0); Calcium 7.6 mg/dL (8.5-10.1); Magnesium 2.3 mg/dL (1.6-2.6); Potassium 3.9 mmol/L (3.5-5.1)
--- NOTE | 2020-04-21 07:20 | NUR ---
OPENING SHIFT NOTE ASSUMED CARE OF PATIENT FROM DRESSMAKER OR TAILOR RN JOSE G. PATIENT IS AWAKE, ALERT, AND ORIENTED X4. PATIENT HAS NO S/S OF DISTRESS/SOB OR PAIN. PATIENT IS VERBALLY ABUSIVE AND REFUSED PHYSICAL ASSESSMENT. PATIENT STATED " GET THE FUCK OUT OF MY ROOM BECAUSE YOUR NOT DOING SHIT, FIND OUT ABOUT MY FUCKING TRANSFER AND BRING MY MORPHINE EVERY TWO HOURS." INSTRUCTED PATIENT ON POC, PATIENT VERBALIZED UNDERSTANDING. BED IS IN LOWEST POSITION WITH SIDE RAILS RAISED X2, BED WHEELS LOCKED, AND CALL LIGHT IS WITHIN REACH. WILL CONTINUE TO MONITOR.
[2020-04-21 07:22] LABS: BUN/Creatinine Ratio 22.8; Bilirubin, Total 0.6 mg/dL (0.2-1.0); Phosphorus 3.3 mg/dL (2.5-4.90); Total Protein 5.8 g/dL (6.4-8.2)
[2020-04-21] MEDS ORDERED: PHYTONADIONE (VIT K)10 MG/ML 1ML VIAL SUBCUT ONE (08:45)
[2020-04-21 09:00] VITALS: BP 128/87
--- NOTE | 2020-04-21 09:00 | NUR ---
MD DAY AT BEDSIDE UPDATED MD ON PATIENTS STATUS, MD IS AWARE. NO NEW ORDERS GIVEN.
[2020-04-21] MEDS: PANTOPRAZOLE 40 MG/10 ML VIAL INJ IV SCH ×2 (11:08→21:09)
[2020-04-21] MEDS: SODIUM CHLOR 0.9% PF (SALINE LOCK) 10ML VIAL/SYR IV SCH ×2 (11:08→21:10)
[2020-04-21] MEDS: LEVOTHYROXINE SODIUM 100 MCG/5 ML INJ IV SCH (11:08)
--- NOTE | 2020-04-21 12:53 | NUR ---
Respiratory note: SCHEDULED 1200 MEDNEB TX NOT GIVEN. VITALS CHECKED HR 72, RR 22, SPO2 96% ON 3LPM NASAL CANNULA. WAS ABOUT TO START TX WHEN THIS RT WAS CALLED TO RESPOND TO . PT WAS LAYING IN BED COMFORTABLY, NO S/S OF RESPIRATORY DISTRESS NOTED.
[2020-04-21 12:56] VITALS: BP 132/80
--- NOTE | 2020-04-21 16:59 | NUR ---
PATIENT BECAME VERBALLY ABUSIVE AGAIN AND STARTED THROWING HIS THING IN THE ROOM AND CHARGE NURSE FANY AND MYSELF. SECURITY WAS CALLED AND TALKED WITH PATIENT. PER PATIENT HE WANTS TO LEAVE AMA AND STATES HE IS GOING TO GO BUY FOOD. INFORMED MD DAY. MD DAY IS CALLING ER MD TO TAKE OUT CHEST TUBE. AWAITING FOR ER DOCTOR.
[2020-04-21 17:13] VITALS: BP 168/75
--- NOTE | 2020-04-21 17:30 | NUR ---
ER DOCTOR, DR. JEREZ AT BEDSIDE UPDATED MD ON PATIENT'S STATUS, MD SPOKE WITH PATIENT AND PATIENT AGREED TO STAY.
--- NOTE | 2020-04-21 19:03 | NUR ---
CLOSING SHIFT NOTE ENDORSED CARE TO E COMMERCE MARKETING MANAGER RN JOSE G. PATIENT HAS NO S/S OF DISTRESS/SOB OR PAIN AT THIS TIME. WILL CONTINUE TO MONITOR.
[2020-04-21] MEDS ORDERED: TPN PER PHARMACY IV NR ×10 (20:00)
--- NOTE | 2020-04-21 20:18 | NUR ---
PATIENT PULLED OUT RIGHT POSTERIOR CHEST TUBE. XEROFORM PETROLATUM DRESSING AND MEDIPORE TAPE APPLIED. WILL JENIFER HOSPITALIST. Addendum: 04/21/20 at 2051 by Chela Longo RN PATIENT IS ALERT AND ORIENTED X4, VERY NON COMPLIANT, STATING " I DON'T GIVE A FUCK".
--- NOTE | 2020-04-21 20:30 | NUR ---
HOSPITALIST RETURNED PAGE NO NEW INTERVENTIONS AT THIS TIME, DUE TO PATIENT BEING ALERT AND ORIENTED X4 AND BEING NON COMPLIANT, PATIENT WILL MOST LIKELY PULL TUBE OUT AGAIN.
[2020-04-21 22:07] VITALS: BP 134/55
[2020-04-22] MEDS: IPRATROPIUM BROM 0.5 MG/2.5ML INH SOL NEB SCH ×4 (00:23→19:43)
[2020-04-22] MEDS: ALBUTEROL SULF 2.5 MG/0.5ML(0.5%) NEB SOLN NEB SCH ×4 (00:23→19:43)
[2020-04-22] MEDS: ACETYLCYSTEINE 10 %(100MG/ML) SOL 4ML NEB SCH ×4 (00:23→19:44)
[2020-04-22] MEDS: MEROPENEM 1GM IVPB 100 ML IV SCH ×2 (01:16→13:03)
[2020-04-22 02:38] VITALS: BP 134/55
[2020-04-22 05:07] VITALS: BP 140/82
[2020-04-22 05:31] LABS: Basophils # (auto) 0.1 10 ^3/uL (0-0.2); Eosinophils # (auto) 0.2 10 ^3/uL (0-0.8); Hemoglobin 8.4 g/dL (13.5-17.5); Lymphocytes # (auto) 0.7 10 ^3/uL (0.4-5.4)
[2020-04-22 05:35] LABS: Eosinophils % (auto) 2.3 % (0.0-7.0); Hematocrit 27.4 % (41.0-53.0); Lymphocytes % (auto) 8.2 % (10.0-50.0); Mean Corpuscular Hgb Conc. 30.8 g/dL (32.0-36.0); Mean Corpuscular Volume 81.3 fL (80.0-100.0); Monocytes # (auto) 1.5 10 ^3/uL (0-1.3); Monocytes % (auto) 17.7 % (0.0-12.0); Neutrophils % (auto) 70.8 % (37.0-80.0); Platelet Count (auto) 116 10^3/uL (140-450); Red Blood Cells 3.37 10^6/uL (4.5-5.90); White Blood Cell 8.5 10^3/uL (4.4-10.8)
[2020-04-22 05:48] LABS: INR 1.37 (0.9-1.15)
[2020-04-22] MEDS: OCTREOTIDE ACETATE 100 MCG/ML VL SUBCUT SCH ×3 (06:00→21:55)
[2020-04-22] MEDS: InsuLIN REG 1unit/0.01ml Soln (100units/ml) SC SCH ×3 (06:00→17:23)
[2020-04-22 06:01] LABS: Calcium 7.5 mg/dL (8.5-10.1); Potassium 3.7 mmol/L (3.5-5.1)
[2020-04-22 06:06] LABS: Albumin 1.6 g/dL (3.4-5.0); BUN/Creatinine Ratio 22.7; Bilirubin, Total 0.6 mg/dL (0.2-1.0); Magnesium 2.4 mg/dL (1.6-2.6); Phosphorus 3.8 mg/dL (2.5-4.90); Total Protein 5.8 g/dL (6.4-8.2)
[2020-04-22] MEDS: ACCU-CHEK COMFORT CURVE STRIP VI SCH ×3 (06:51→17:23)
[2020-04-22 09:00] VITALS: BP 141/96
[2020-04-22] MEDS: PANTOPRAZOLE 40 MG/10 ML VIAL INJ IV SCH ×2 (09:46→21:25)
[2020-04-22] MEDS: LEVOTHYROXINE SODIUM 100 MCG/5 ML INJ IV SCH (09:46)
[2020-04-22] MEDS: MORPHINE SULF INJ 2 MG/ML SYRINGE 1ML IV PRN ×3 (09:46→21:25)
[2020-04-22] MEDS: SODIUM CHLOR 0.9% PF (SALINE LOCK) 10ML VIAL/SYR IV SCH ×2 (09:47→21:25)
--- NOTE | 2020-04-22 11:00 | NUR ---
Upset Patient Patient in room, unhappy that the is not able to eat. He called 911 and is now trying to get food from roommate. Patient again reminded that he is NPO and is not allowed to eat anything.
--- NOTE | 2020-04-22 11:35 | NUR ---
Hospitalist Rounded Dr. Rich at bedside.
[2020-04-22 13:00] VITALS: BP 154/115
[2020-04-22] MEDS: hydrALAZINE HCL 20 MG/ML VL IV PRN (13:04)
--- NOTE | 2020-04-22 14:49 | NUR ---
Pain Patient complained of pain level 8/10. Medicated with morphine 2mg as ordered. Will reassess as per protocol.
[2020-04-22 17:00] VITALS: BP 134/69
--- NOTE | 2020-04-22 19:30 | NUR ---
OPENING SHIFT NOTE Assumed patient care from day shift RN. Patient AOx4. No s/s of distress or SOB. Patient is agitated because he wants to have food to eat. Patient educated that he is on TPN. Instructed patient on POC. Safety precautions in place w/ HOB at 30 degrees, bed locked in lowest position w/ side rails up x2. Will continue to monitor.
[2020-04-22] MEDS ORDERED: TPN PER PHARMACY IV NR ×11 (20:00)
--- NOTE | 2020-04-22 21:40 | NUR ---
Patient Complains of Generalized Pain Patient given pain medication as prescribed. Will continue to monitor.
[2020-04-22 22:00] VITALS: BP 124/84
[2020-04-23] MEDS: IPRATROPIUM BROM 0.5 MG/2.5ML INH SOL NEB SCH ×5 (00:14→23:55)
[2020-04-23] MEDS: ALBUTEROL SULF 2.5 MG/0.5ML(0.5%) NEB SOLN NEB SCH ×5 (00:14→23:55)
[2020-04-23] MEDS: ACETYLCYSTEINE 10 %(100MG/ML) SOL 4ML NEB SCH ×5 (00:14→23:56)
[2020-04-23] MEDS: InsuLIN REG 1unit/0.01ml Soln (100units/ml) SC SCH ×4 (01:18→18:00)
[2020-04-23] MEDS: ACCU-CHEK COMFORT CURVE STRIP VI SCH ×4 (01:18→18:37)
[2020-04-23] MEDS: MEROPENEM 1GM IVPB 100 ML IV SCH ×2 (01:19→14:27)
[2020-04-23 05:00] VITALS: BP 126/76
[2020-04-23] MEDS: OCTREOTIDE ACETATE 100 MCG/ML VL SUBCUT SCH ×3 (06:56→21:06)
[2020-04-23 07:10] LABS: Albumin 1.6 g/dL (3.4-5.0); Calcium 7.5 mg/dL (8.5-10.1); Magnesium 2.6 mg/dL (1.6-2.6); Potassium 3.9 mmol/L (3.5-5.1)
[2020-04-23 07:13] LABS: Hematocrit 25.2 % (41.0-53.0); Hemoglobin 7.9 g/dL (13.5-17.5); Mean Corpuscular Hgb Conc. 31.4 g/dL (32.0-36.0); Mean Corpuscular Volume 79.6 fL (80.0-100.0); Platelet Count (auto) 131 10^3/uL (140-450); Red Blood Cells 3.17 10^6/uL (4.5-5.90); Red Cell Distribution Width 19.9 % (11.8-14.3); White Blood Cell 7.5 10^3/uL (4.4-10.8)
[2020-04-23 07:14] LABS: BUN/Creatinine Ratio 22.1; Bilirubin, Total 0.7 mg/dL (0.2-1.0); Phosphorus 3.5 mg/dL (2.5-4.90); Total Protein 5.9 g/dL (6.4-8.2)
[2020-04-23 07:15] LABS: Band Neutrophils % (manual) 0; Basophils % (manual) 0 (0.0-2.0); Blast Cells 0; Myelocytes % 0; Promyelocytes % 0; Reactive Lymphocytes 0
--- NOTE | 2020-04-23 07:45 | NUR ---
Opening Shift Note Assumed care of patient, awake and alert laying in bed. Patient stated that he's been better. No S/S of distress/SOB or pain. TPN continuous, Chest tube in place and properly secured, no new drainage noted in chamber. Instructed on POC and to call for assist PRN, will continue to monitor for changes Q1hr and PRN.
--- NOTE | 2020-04-23 08:29 | NUR ---
Rounding Patient standing at bedside taking food from roommate. When he sees RN he jumped back in bed and tossed the food aside. Patient was reminded of his NPO status and roommate was asked not to share his meals. RN for that patient was notified. Notified MD (Dr. Rich) regarding patient's attempt to eat against advise.
--- NOTE | 2020-04-23 08:35 | NUR ---
Breakfast As per roommate, patient ate a slice of his orange from his tray. He didn't actually give him anything, he was asked and then began taking things off his tray.
[2020-04-23 09:00] VITALS: BP 144/79
[2020-04-23] MEDS: PANTOPRAZOLE 40 MG/10 ML VIAL INJ IV SCH ×2 (09:35→21:04)
[2020-04-23] MEDS: LEVOTHYROXINE SODIUM 100 MCG/5 ML INJ IV SCH (09:35)
[2020-04-23] MEDS: SODIUM CHLOR 0.9% PF (SALINE LOCK) 10ML VIAL/SYR IV SCH ×2 (09:37→21:04)
[2020-04-23] MEDS ORDERED: PHYTONADIONE (VIT K)10 MG/ML 1ML VIAL SUBCUT ONE (09:45)
[2020-04-23 11:09] LABS: Lymphocytes % (manual) 10 (10.0-50.0); Monocytes % (manual) 13 (0-12)
[2020-04-23 11:10] LABS: Eosinophils % (manual) 1 (0-7); Metamyelocytes % 2
--- NOTE | 2020-04-23 11:59 | NUR ---
Nutrition Followup Notes Wt 93.9 kg Pt was awake with no family at bedside when rounded this morning. Pt with TPN running at 67 ml/hr to provide 1870 kcal, 70g protein, 1590 NPCs. Pt with adequate PN support as it provides 81-89% of est energy needs and 132-167% of est protein needs. Noted pt with D/C order. Will continue to monitor PO status, skin status, pertinent labs and weight trends. Will f/u in 2-3 days. Est energy needs 6255-1984 kcal (30-33kcal/kg BW 70.3kg) Est protein needs 42-53g (0.6-0.75g/kg BW 70.3kg d/t ARF, elevated RFT, no HD, adjust if HD noted or initiated) Will reassess prn Lab: BUN 46H, Creat 2.08H, GFR 34 L, Ca 7.5 L, Alb 1.6 L BM: Pt with 1 BM noted 04/21 in RN doc Skin: BS 17 mod risk, full details in resident care assistant doc. PES: Altered nutrition related labs r/t current and chronic medical condition aeb pt with elevated RFTs, LFTs, hyperglycemia, severe hypoalb Comments: 1) Continue to monitor po status, labs, skin 2) Refer pt to OPD on DC 3) Continue current plan of care
[2020-04-23 13:00] VITALS: BP 153/72
[2020-04-23 17:00] VITALS: BP 142/78
--- NOTE | 2020-04-23 17:55 | NUR ---
Transfer patient from room 218A to 209 with all personal belongings.
--- NOTE | 2020-04-23 18:21 | NUR ---
RT NOTE PT WAS SEEN BY RT FOR HHN TX. P TOLERATES WELL VIA MASK. NO ADVERSE REACTIPON NOTED . PT HAS A NOTED RIGHT SIDED CHEST TUBE TO SUCTION. CONT ORDERED
--- NOTE | 2020-04-23 18:22 | NUR ---
RT NOTE PT WAS SEEN BY RT FOR HHN TX. PT TOLERATES WELL VIA MASK. NO ADVERSE REACTION NOTED. PT HS A NOTED RIGHT SIDED CHEST TUBE TO SUCTION. PT FOUND ON ROOM AIR, BUT HAS 2L NASAL CANNULA AT BEDSIDE NEEDED. CONT ORDERED Addendum: 04/23/20 at 1825 by Tierra Brown RT Amended: Links added.
--- NOTE | 2020-04-23 18:30 | NUR ---
PICC Line Dressing Changed performed.
--- NOTE | 2020-04-23 18:40 | NUR ---
Hygienic needs Assisted with hygienic needs, and bed linen changed.
--- NOTE | 2020-04-23 19:30 | NUR ---
Opening Shift Note Assumed care of patient, awake and agitated. Patient requesting to have something to eat. This RN explained to the patient on why he cannot have anything to eat or drink. Patient remains agitated and verbalized "Then get the fuck out of here". Instructed on POC and to call for assist PRN, will continue to monitor for changes Q1hr and PRN. TPN running at 67ml/hr. Chest tube in place connected to low continuous suction. Suprapubic catheter in place flowing.
[2020-04-23] MEDS ORDERED: TPN PER PHARMACY IV NR ×9 (20:00)
--- NOTE | 2020-04-23 23:06 | NUR ---
High pressure alarm on IV pump connected to TPN. Patient refusing to keep arm straight. Patient refuses to have this RN flush PICC line. Patient verbalized "I dont give a fuck, leave me alone."I dont know what your problem is but mine is going to sleep, bye".
[2020-04-23 23:41] VITALS: BP 135/86
--- NOTE | 2020-04-23 23:46 | NUR ---
Accucheck Patient refused to have blood sugar checked. Educated patient on the importance of having blood sugar checked. Patient verbalized "Leave me alone".
--- NOTE | 2020-04-23 23:57 | NUR ---
RT NOTE PT WAS SEEN BY RT FOR HHN TX. PT TOLERATES WELL VIA MASK NO ADVERSE REACTION NOTED. CONT ORDERED Addendum: 04/23/20 at 2358 by Tierra Brown RT Amended: Links added.
[2020-04-24] MEDS: MEROPENEM 1GM IVPB 100 ML IV SCH ×2 (00:08→15:20)
--- NOTE | 2020-04-24 00:11 | NUR ---
RT NOTE NEW HHN SET UP PROVIDED
--- NOTE | 2020-04-24 05:19 | NUR ---
Refused care Patient refused vital signs checked, blood sugar check, blood draw and medication Sandostatin. Reinforced teaching on the importance of these interventions. Patient verbalized "I DONT GIVE A FUCK, GET THE FUCK OUT OF HERE"
[2020-04-24] MEDS: InsuLIN REG 1unit/0.01ml Soln (100units/ml) SC SCH ×4 (05:28→18:00)
[2020-04-24] MEDS: ACCU-CHEK COMFORT CURVE STRIP VI SCH ×4 (05:31→18:00)
[2020-04-24] MEDS: OCTREOTIDE ACETATE 100 MCG/ML VL SUBCUT SCH ×3 (05:31→21:38)
[2020-04-24] MEDS: ALBUTEROL SULF 2.5 MG/0.5ML(0.5%) NEB SOLN NEB SCH ×4 (06:00→18:53)
[2020-04-24] MEDS: IPRATROPIUM BROM 0.5 MG/2.5ML INH SOL NEB SCH ×4 (06:00→18:53)
[2020-04-24] MEDS: ACETYLCYSTEINE 10 %(100MG/ML) SOL 4ML NEB SCH ×4 (06:00→18:54)
--- NOTE | 2020-04-24 06:01 | NUR ---
Respiratory note: PT REFUSING SCHEDULE MED NEB TX AT THIS TIME. NO SOB OR DISTRESS NOTED. WILL CONTINUE TO MONITOR.
[2020-04-24 09:00] VITALS: BP 137/86
[2020-04-24] MEDS: LEVOTHYROXINE SODIUM 100 MCG/5 ML INJ IV SCH (10:18)
[2020-04-24] MEDS: PANTOPRAZOLE 40 MG/10 ML VIAL INJ IV SCH ×2 (10:18→21:07)
[2020-04-24] MEDS: SODIUM CHLOR 0.9% PF (SALINE LOCK) 10ML VIAL/SYR IV SCH ×2 (10:19→21:07)
[2020-04-24 10:23] LABS: Basophils # (auto) 0.1 10 ^3/uL (0-0.2); Eosinophils # (auto) 0.1 10 ^3/uL (0-0.8); Lymphocytes # (auto) 0.6 10 ^3/uL (0.4-5.4); White Blood Cell 7.1 10^3/uL (4.4-10.8)
[2020-04-24 10:24] LABS: Basophils % (auto) 1.1 % (0.0-2.0); Eosinophils % (auto) 0.9 % (0.0-7.0); Hematocrit 25.9 % (41.0-53.0); Lymphocytes % (auto) 8.8 % (10.0-50.0); Mean Corpuscular Hemoglobin 25.2 pg (28.0-32.0); Mean Corpuscular Volume 81.3 fL (80.0-100.0); Monocytes % (auto) 13.6 % (0.0-12.0); Neutrophils # (auto) 5.3 10 ^3/uL (1.6-8.6); Neutrophils % (auto) 75.6 % (37.0-80.0); Platelet Count (auto) 153 10^3/uL (140-450); Red Blood Cells 3.18 10^6/uL (4.5-5.90); Red Cell Distribution Width 19.9 % (11.8-14.3)
[2020-04-24 10:49] LABS: Potassium 4.2 mmol/L (3.5-5.1)
[2020-04-24 11:06] LABS: Albumin 1.7 g/dL (3.4-5.0); BUN/Creatinine Ratio 19.8; Bilirubin, Total 1.2 mg/dL (0.2-1.0); Calcium 7.8 mg/dL (8.5-10.1); Magnesium 2.4 mg/dL (1.6-2.6); Phosphorus 3.6 mg/dL (2.5-4.90); Total Protein 6.2 g/dL (6.4-8.2)
[2020-04-24 11:29] LABS: INR 1.31 (0.9-1.15)
[2020-04-24] MEDS: ONDANSETRON HCL 4 MG/2 ML VIAL IV PRN (12:02)
[2020-04-24] MEDS: MORPHINE SULF INJ 2 MG/ML SYRINGE 1ML IV PRN ×2 (12:03→21:37)
[2020-04-24 13:00] VITALS: BP 143/95
--- NOTE | 2020-04-24 14:00 | NUR ---
Refused Medications Patient does not want to be disturbed. He is refusing medications and vitals until he can have something to eat.
[2020-04-24 17:00] VITALS: BP 124/75
--- NOTE | 2020-04-24 19:30 | NUR ---
Opening Shift Note Received report from tai Tom RN. Assumed care of patient, awake and alert. No S/S of distress/SOB or pain. Instructed on POC and to call for assist PRN, will continue to monitor for changes Q1hr and PRN. Patient is asking for something to eat but when I advise him of his NPO diet he got angry and and patient stated" Get the fuck out of here". Bed placed in lowest position and call light within reach. I left the room and will come back later.
[2020-04-24] MEDS ORDERED: TPN PER PHARMACY IV NR ×8 (20:00)
--- NOTE | 2020-04-24 20:58 | NUR ---
Patient is requesting if I can get blood sugar check right now because patient does not want to be disrupted in the middle of the night. Blood sugar check is 103.
[2020-04-24 22:00] VITALS: BP 140/77
--- NOTE | 2020-04-24 22:00 | NUR ---
Patient refused Octreotide Acetate subQ injection. Patient states "leave me alone". Will try again later.
[2020-04-25] MEDS: ACETYLCYSTEINE 10 %(100MG/ML) SOL 4ML NEB SCH ×4 (00:13→20:07)
[2020-04-25] MEDS: IPRATROPIUM BROM 0.5 MG/2.5ML INH SOL NEB SCH ×4 (00:13→20:07)
[2020-04-25] MEDS: ALBUTEROL SULF 2.5 MG/0.5ML(0.5%) NEB SOLN NEB SCH ×4 (00:13→20:07)
[2020-04-25] MEDS: ACCU-CHEK COMFORT CURVE STRIP VI SCH ×4 (00:22→17:06)
[2020-04-25] MEDS: MORPHINE SULF INJ 2 MG/ML SYRINGE 1ML IV PRN ×5 (00:22→21:09)
[2020-04-25] MEDS: MEROPENEM 1GM IVPB 100 ML IV SCH ×2 (01:01→13:45)
[2020-04-25 01:20] VITALS: BP 144/77
[2020-04-25 05:00] VITALS: BP 147/75
[2020-04-25] MEDS: OCTREOTIDE ACETATE 100 MCG/ML VL SUBCUT SCH ×3 (06:04→22:56)
[2020-04-25] MEDS: InsuLIN REG 1unit/0.01ml Soln (100units/ml) SC SCH ×4 (06:06→17:06)
--- NOTE | 2020-04-25 06:37 | NUR ---
ROUNDS Patient is resting in bed with eyes closed, no distress noted and patient denies pain.
--- NOTE | 2020-04-25 08:00 | NUR ---
Received pt resting in bed, call light within reach, pt has suprapubic catherer in, draining to gravity, lt chest tube in place, PICC line to lt upper arm, will continue to monitor pt.
[2020-04-25 09:00] VITALS: BP 147/78
[2020-04-25] MEDS ORDERED: PHYTONADIONE (VIT K)10 MG/ML 1ML VIAL SUBCUT ONE (09:00)
[2020-04-25 09:31] LABS: Eosinophils # (auto) 0.1 10 ^3/uL (0-0.8); Hemoglobin 7.5 g/dL (13.5-17.5); Red Cell Distribution Width 20.6 % (11.8-14.3)
[2020-04-25 09:33] LABS: Basophils # (auto) 0.1 10 ^3/uL (0-0.2); Basophils % (auto) 2.1 % (0.0-2.0); Eosinophils % (auto) 1.6 % (0.0-7.0); Hematocrit 24.6 % (41.0-53.0); Lymphocytes # (auto) 0.6 10 ^3/uL (0.4-5.4); Lymphocytes % (auto) 8.9 % (10.0-50.0); Mean Corpuscular Hgb Conc. 30.6 g/dL (32.0-36.0); Mean Corpuscular Volume 81.5 fL (80.0-100.0); Monocytes % (auto) 15.8 % (0.0-12.0); Neutrophils # (auto) 4.6 10 ^3/uL (1.6-8.6); Neutrophils % (auto) 71.6 % (37.0-80.0); Platelet Count (auto) 174 10^3/uL (140-450); Red Blood Cells 3.01 10^6/uL (4.5-5.90); White Blood Cell 6.4 10^3/uL (4.4-10.8)
[2020-04-25 09:48] LABS: Albumin 1.6 g/dL (3.4-5.0); Calcium 7.3 mg/dL (8.5-10.1); Magnesium 2.4 mg/dL (1.6-2.6)
[2020-04-25 09:53] LABS: BUN/Creatinine Ratio 18.9; Bilirubin, Total 0.6 mg/dL (0.2-1.0); Phosphorus 3.3 mg/dL (2.5-4.90); Total Protein 6.2 g/dL (6.4-8.2)
[2020-04-25] MEDS: LEVOTHYROXINE SODIUM 100 MCG/5 ML INJ IV SCH (10:13)
[2020-04-25] MEDS: PANTOPRAZOLE 40 MG/10 ML VIAL INJ IV SCH ×2 (10:13→21:08)
[2020-04-25] MEDS: SODIUM CHLOR 0.9% PF (SALINE LOCK) 10ML VIAL/SYR IV SCH ×2 (10:20→21:10)
--- NOTE | 2020-04-25 11:22 | NUR ---
Nutrition Followup Notes Wt 64.0 kg Pt is awake and alert. Pt reports feeling hungry. Pt currently NPO with TPN running at 76 ml/hr to provide 2080 kcal, 80g protein, 1760 NCP. This provides 90-99% of energy needs and >100% of protein needs Est energy needs 0167-5929 kcal (30-33kcal/kg BW 70.3kg) Est protein needs 42-53g (0.6-0.75g/kg BW 70.3kg d/t ARF, elevated RFT, no HD, adjust if HD noted or initiated) Will reassess prn Lab: BUN 42H, Creat 2.12H, Alb 1.7L, Gluc 152H BM: Pt with 2 BMs noted 04/25 in RN doc Skin: BS 18 low risk, full details in home care giver doc. PES: Altered nutrition related labs r/t current and chronic medical condition aeb pt with elevated RFTs, LFTs, hyperglycemia, severe hypoalb Comments: 1) Continue to monitor po status, labs, skin 2) Refer pt to OPD on DC 3) Continue current plan of care f/u 2-3 days
[2020-04-25 12:25] VITALS: BP 147/85
--- NOTE | 2020-04-25 13:03 | NUR ---
Called protective services case worker to find out the status on the transfer to the acute care facility, left a message.
[2020-04-25 17:06] VITALS: BP 134/80
[2020-04-25] MEDS ORDERED: TPN PER PHARMACY IV NR ×9 (20:00)
[2020-04-25] MEDS: ONDANSETRON HCL 4 MG/2 ML VIAL IV PRN (21:09)
[2020-04-25 22:00] VITALS: BP 149/79
--- NOTE | 2020-04-26 | NUR ---
BLOOD SUGAR= 134. REFUSED REGULAR INSULIN COVERAGE. CONSEQUENCES EXPLAINED, BUT REFUSED.
[2020-04-26] MEDS: ACETYLCYSTEINE 10 %(100MG/ML) SOL 4ML NEB SCH ×4 (00:11→18:42)
[2020-04-26] MEDS: IPRATROPIUM BROM 0.5 MG/2.5ML INH SOL NEB SCH ×4 (00:11→18:42)
[2020-04-26] MEDS: ACCU-CHEK COMFORT CURVE STRIP VI SCH ×5 (00:11→23:50)
[2020-04-26] MEDS: ALBUTEROL SULF 2.5 MG/0.5ML(0.5%) NEB SOLN NEB SCH ×4 (00:11→18:42)
[2020-04-26] MEDS: MEROPENEM 1GM IVPB 100 ML IV SCH ×2 (00:11→13:20)
[2020-04-26 05:00] VITALS: BP 153/81
[2020-04-26] MEDS: OCTREOTIDE ACETATE 100 MCG/ML VL SUBCUT SCH ×2 (05:38→13:20)
[2020-04-26] MEDS: hydrALAZINE HCL 20 MG/ML VL IV PRN ×2 (05:39→09:31)
[2020-04-26] MEDS: InsuLIN REG 1unit/0.01ml Soln (100units/ml) SC SCH ×5 (05:39→23:50)
[2020-04-26 05:46] LABS: Basophils # (auto) 0.2 10 ^3/uL (0-0.2); Eosinophils # (auto) 0.1 10 ^3/uL (0-0.8); Lymphocytes # (auto) 0.5 10 ^3/uL (0.4-5.4); Monocytes # (auto) 0.9 10 ^3/uL (0-1.3); Neutrophils # (auto) 4.8 10 ^3/uL (1.6-8.6); White Blood Cell 6.5 10^3/uL (4.4-10.8)
[2020-04-26 05:49] LABS: Basophils % (auto) 2.9 % (0.0-2.0); Hematocrit 23.6 % (41.0-53.0); Hemoglobin 7.3 g/dL (13.5-17.5); Lymphocytes % (auto) 7.4 % (10.0-50.0); Mean Corpuscular Hemoglobin 25.3 pg (28.0-32.0); Mean Corpuscular Hgb Conc. 31.1 g/dL (32.0-36.0); Mean Corpuscular Volume 81.4 fL (80.0-100.0); Monocytes % (auto) 13.4 % (0.0-12.0); Neutrophils % (auto) 74.3 % (37.0-80.0); Platelet Count (auto) 174 10^3/uL (140-450)
[2020-04-26 05:59] LABS: INR 1.35 (0.9-1.15)
[2020-04-26 06:19] VITALS: BP 147/80
[2020-04-26 06:22] LABS: Potassium 3.8 mmol/L (3.5-5.1)
[2020-04-26 06:25] LABS: Red Cell Distribution Width 20.5 % (11.8-14.3)
[2020-04-26 06:36] LABS: Albumin 1.5 g/dL (3.4-5.0); BUN/Creatinine Ratio 20.7; Bilirubin, Total 0.5 mg/dL (0.2-1.0); Calcium 7.1 mg/dL (8.5-10.1); Magnesium 2.1 mg/dL (1.6-2.6); Phosphorus 2.8 mg/dL (2.5-4.90); Pre Albumin 7.2 mg/dL (20.0-40.0); Total Protein 6.1 g/dL (6.4-8.2)
[2020-04-26] MEDS: ACETAMINOPHEN 325 MG TAB PO PRN (07:01)
--- NOTE | 2020-04-26 07:45 | NUR ---
OPENING NOTE ASSUMED CARE OF PT. ALERT AND ORIENTED. NO S/S OF SOB/DISTRESS NOTED. BED SET TO LOWEST POSITION/LOCKED, BEDSIDE RAILS UP X2, CALL LIGHT WITHIN REACH. INSTRUCTED PT TO CALL FOR ASSISTANCE. UPDATED ON POC. WILL CONTINUE TO MONITOR Q1HR AND PRN.
[2020-04-26 09:00] VITALS: BP 178/71
[2020-04-26] MEDS: PANTOPRAZOLE 40 MG/10 ML VIAL INJ IV SCH ×2 (09:19→21:28)
[2020-04-26] MEDS: LEVOTHYROXINE SODIUM 100 MCG/5 ML INJ IV SCH (09:19)
[2020-04-26] MEDS: MORPHINE SULF INJ 2 MG/ML SYRINGE 1ML IV PRN (09:20)
--- NOTE | 2020-04-26 09:45 | NUR ---
Pt declined PT tx for today. Addendum: 04/26/20 at 1437 by Woo Georges PROJECT COORDINATOR Amended: Links added.
[2020-04-26] MEDS: SODIUM CHLOR 0.9% PF (SALINE LOCK) 10ML VIAL/SYR IV SCH ×2 (10:00→21:28)
[2020-04-26 13:00] VITALS: BP 153/78
[2020-04-26 16:45] VITALS: BP 149/76
--- NOTE | 2020-04-26 16:45 | NUR ---
TEMP PATIENTS TEMP IS 101.8, COOLING MEASURES INITIATED, WILL CONTINUE TO MONITOR.
--- NOTE | 2020-04-26 17:30 | NUR ---
TEMP REASSESSED PATIENT TEMP 97.5
--- NOTE | 2020-04-26 19:30 | NUR ---
assumed care. pt. awake, sligthly mean, does not want to be disturbed, no c/o pain, no sob.
[2020-04-26] MEDS ORDERED: TPN PER PHARMACY IV NR ×10 (20:00)
[2020-04-26 22:00] VITALS: BP 128/79
[2020-04-27] VITALS (14 sets, daily range): BP systolic 118–147; BP diastolic 57–80
[2020-04-27] MEDS: IPRATROPIUM BROM 0.5 MG/2.5ML INH SOL NEB SCH ×4 (00:03→18:50)
[2020-04-27] MEDS: ALBUTEROL SULF 2.5 MG/0.5ML(0.5%) NEB SOLN NEB SCH ×4 (00:03→18:50)
[2020-04-27] MEDS: ACETYLCYSTEINE 10 %(100MG/ML) SOL 4ML NEB SCH ×4 (00:03→18:50)
[2020-04-27] MEDS: MEROPENEM 1GM IVPB 100 ML IV SCH ×2 (01:13→13:00)
--- NOTE | 2020-04-27 05:00 | NUR ---
pt. refused v/s, pt. grumpy, not in distress.
[2020-04-27] MEDS: InsuLIN REG 1unit/0.01ml Soln (100units/ml) SC SCH ×4 (06:00→23:11)
[2020-04-27] MEDS: ACCU-CHEK COMFORT CURVE STRIP VI SCH ×4 (06:01→23:11)
[2020-04-27 06:47] LABS: Potassium 3.9 mmol/L (3.5-5.1)
[2020-04-27 06:53] LABS: Albumin 1.4 g/dL (3.4-5.0); BUN/Creatinine Ratio 19.5; Bilirubin, Total 0.7 mg/dL (0.2-1.0); Calcium 7.3 mg/dL (8.5-10.1); Magnesium 2.1 mg/dL (1.6-2.6); Pre Albumin 6.4 mg/dL (20.0-40.0); Total Protein 5.8 g/dL (6.4-8.2)
[2020-04-27] MEDS: LEVOTHYROXINE SODIUM 100 MCG/5 ML INJ IV SCH (09:33)
[2020-04-27] MEDS: SODIUM CHLOR 0.9% PF (SALINE LOCK) 10ML VIAL/SYR IV SCH ×2 (09:33→21:35)
[2020-04-27] MEDS: PANTOPRAZOLE 40 MG/10 ML VIAL INJ IV SCH ×2 (09:33→21:35)
[2020-04-27] MEDS: MORPHINE SULF INJ 2 MG/ML SYRINGE 1ML IV PRN ×2 (09:34→22:12)
--- NOTE | 2020-04-27 09:45 | NUR ---
PICTAIL PATIENTS PICTAIL HAS BEEN DISLODGED. NO S/S OF SOB/DISTRESS NOTED. ANTERIOR/POSTERIOR BREATH SOUND CLEAR. MD IS AWARE. WILL CONTINUE TO MONITOR FOR CHANGES.
--- NOTE | 2020-04-27 11:05 | NUR ---
Nutrition Followup Notes Wt 64.0 kg Pt is awake and alert. Pt is angry, reports feeling hungry. Pt currently NPO with TPN running at 77 ml/hr to provide 2080 kcal, 80g protein, 1760 NCP. Pt PN support is adequate as it meets 90-99% of energy needs and >100% of protein needs. Please refer to noted recommendations below under Comments. Will continue to monitor PO status, skin status, pertinent labs and weight trends. Will f/u in 2-3 days. Est energy needs 7552-1838 kcal (30-33kcal/kg BW 70.3kg) Est protein needs 42-53g (0.6-0.75g/kg BW 70.3kg d/t ARF, elevated RFT, no HD, adjust if HD noted or initiated) Will reassess prn Lab: BUN 42 H, Creat 2.15 H, GFR 33 L, Alb 1.4 L, Gluc 70 L BM: Pt with 2 BMs noted 04/25 in RN doc Skin: BS 20 low risk, full details in director medicare sales doc. PES: Altered nutrition related labs r/t current and chronic medical condition aeb pt with elevated RFTs, LFTs, hyperglycemia, severe hypoalb Comments: 1) Continue to monitor po status, labs, skin 2) Gradually advance pt to an oral diet as tolerated per MD approval. Suggest a Renal Standard 50g protein, 2gNa, K2 diet 3) Refer pt to OPD on DC 4) Continue current plan of care
[2020-04-27] MEDS ORDERED: OMNIPAQUE ORAL SOLN 500ml 12mg/ml PO ONE (12:31)
[2020-04-27] MEDS ORDERED: IOHEXOL 300 MG/ML 100ML BOTTLE IJ ONE (12:31)
[2020-04-27] MEDS ORDERED: LIDOCAINE 2%HCL (LOCAL ANESTH.) INJ 20ML MDV ONE (12:31)
[2020-04-27] MEDS ORDERED: GELATIN 1 SPONGE SIZE 50 TOP ONE (12:32)
[2020-04-27] MEDS ORDERED: fentaNYL CITRATE 100 MCG/2 ML VL ONE (12:46)
[2020-04-27] MEDS ORDERED: MIDAZOLAM HCL 1MG/1ML-2 ML VIAL ONE (12:46)
--- NOTE | 2020-04-27 13:00 | NUR ---
PATIENT ARRIVED TO C.T. PER BED FOR PLACEMENT OF CHEST TUBE UNDER C.T. GUIDANCE, ORDERED PER DR MAYES.CONSENT FOR PROCEDURE PLACED IN CHART. ALL MONITORING EQUIPMENT PLACED ON PATIENT. O2 ON @ 2L PER NC. SEE VS FLOW SHEET FOR VITALS. SEE MODERATE SEDATION DOCUMENTS ON CHART. LEFT LOWER BACK OLD DRAIN SITE WITH PUS NOTED AND REDDENED - CLEANSED WITH CHLORHEXIDINE AND DRY STERILE DRSG APPLIED PER DR TRACEY. CHEST TUBE INSERTED INTO RIGHT POSTERIOR LOWER BACK - DRAINED 600 ML SEROSANG DRNG. PATIENT GIVEN VERSED 0.5MG IVP PER DR TRACEY ORDER FOR PATIENT C/O ANXIETY. DRY STERILE CHEST TUBE DRSG APPLIED AND SECURED WITH CHEST TUBE SECURING DEVICE CONTAINED IN CHEST TUBE PACKAGE. ADDITIONAL TEGADERM APPLIED OVER CT CATHETER. PATIENT CONNECTED TO OASIS WATER SEAL DRNG CONTAINERS AMT SERO SANG DRNG NOTED IN TUBING. 1355 PATIENT PLACED BACK IN BED AND RETURNED TO FLOOR. PATIENT CONDITION APPEARS STABLE FOR TRANSFER BACK TO ROOM ACCOMPANIED PER RN. CHEST TUBE CONNECTED TO WALL SUCTION AT -20CM. BEDSIDE REPORT GIVEN TO PATIENT'S NURSE KOFFI.
--- NOTE | 2020-04-27 13:55 | NUR ---
BACK ON UNIT PATIENT BACK ON VIA BED FROM RADIOLOGY. NO S/S OF SOB/DISTRESS NOTED. DRESSING TO RIGHT BACK C/D/I. CHEST TUBES HOOKED UP TO SUCTION. WILL CONTINUE TO MONITOR FOR CHANGES.
--- NOTE | 2020-04-27 16:15 | NUR ---
notified of patient's chest tube katherine serosang 700 ml out - no further orders received -patient's RN informed.
--- NOTE | 2020-04-27 18:51 | NUR ---
Respiratory note: AT BEDSIDE FOR MED NEB TX. PT REFUSING TX. RT NAME AND PAGER ASSIGNMENT WRITTEN ON PTS ROOM BOARD. WILL CONTINUE TO MONITOR.
--- NOTE | 2020-04-27 18:52 | NUR ---
CHEST TUB PATIENT CHEST DRAINED 800 ML SEROSANGUINEOUS
--- NOTE | 2020-04-27 19:25 | NUR ---
ASSUMED CARE, PT. AWAKE, STILL GRUMPY, LT. CHEST TUBE TO LCS FUNCTIONING WELL, NOT IN DISTRESS.
[2020-04-27] MEDS ORDERED: TPN PER PHARMACY IV NR ×10 (20:00)
[2020-04-27] MEDS ORDERED: ACETAMINOPHEN 650 MG RECT SUPP PR PRN (21:15)
--- NOTE | 2020-04-27 22:15 | NUR ---
PT. T- 100.6, COOLING MEASURES APPLIED, PT. REFUSED TYLENOL SUP. TO KEEP MONITOR.
[2020-04-27] MEDS: ACETAMINOPHEN 325 MG TAB PO PRN (22:26)
[2020-04-27 23:30] LABS: Basophils # (auto) 0.1 10 ^3/uL (0-0.2); Basophils % (auto) 0.8 % (0.0-2.0); Eosinophils # (auto) 0.1 10 ^3/uL (0-0.8); Hemoglobin 7.7 g/dL (13.5-17.5); Monocytes # (auto) 0.9 10 ^3/uL (0-1.3); Neutrophils # (auto) 9.3 10 ^3/uL (1.6-8.6); Platelet Count (auto) 236 10^3/uL (140-450)
[2020-04-27 23:31] LABS: Eosinophils % (auto) 0.6 % (0.0-7.0); Hematocrit 24.4 % (41.0-53.0); Lymphocytes # (auto) 0.5 10 ^3/uL (0.4-5.4); Lymphocytes % (auto) 4.7 % (10.0-50.0); Mean Corpuscular Hemoglobin 25.3 pg (28.0-32.0); Mean Corpuscular Hgb Conc. 31.5 g/dL (32.0-36.0); Mean Corpuscular Volume 80.2 fL (80.0-100.0); Monocytes % (auto) 8.5 % (0.0-12.0); Neutrophils % (auto) 85.4 % (37.0-80.0); Red Blood Cells 3.04 10^6/uL (4.5-5.90); White Blood Cell 10.9 10^3/uL (4.4-10.8)
[2020-04-27 23:32] LABS: Red Cell Distribution Width 20.7 % (11.8-14.3)
[2020-04-28] MEDS: MEROPENEM 1GM IVPB 100 ML IV SCH ×2 (01:13→12:45)
[2020-04-28 05:00] VITALS: BP 131/69
--- NOTE | 2020-04-28 05:00 | NUR ---
PT. AFEBRILE, GRUMPY, MEAN, HE THROWS THE TV MONITOR, TALK TO HIM, THAT HIS NOT SUPPOSED TO THAT, HE SAID THE MONITOR IS BROKEN, SO WE CHANGED THE TV MONITOR, PT. SATISFIED AT THIS TIME.
[2020-04-28] MEDS: InsuLIN REG 1unit/0.01ml Soln (100units/ml) SC SCH ×3 (05:31→18:00)
[2020-04-28] MEDS: ACCU-CHEK COMFORT CURVE STRIP VI SCH ×3 (05:32→18:18)
[2020-04-28 05:47] LABS: Potassium 3.8 mmol/L (3.5-5.1)
[2020-04-28 05:58] LABS: Albumin 1.2 g/dL (3.4-5.0); BUN/Creatinine Ratio 21.5; Bilirubin, Total 0.5 mg/dL (0.2-1.0); Calcium 7.4 mg/dL (8.5-10.1); Magnesium 2.2 mg/dL (1.6-2.6); Phosphorus 3.2 mg/dL (2.5-4.90); Total Protein 5.6 g/dL (6.4-8.2)
[2020-04-28] MEDS: ACETYLCYSTEINE 10 %(100MG/ML) SOL 4ML NEB SCH ×4 (08:43→18:40)
[2020-04-28] MEDS: IPRATROPIUM BROM 0.5 MG/2.5ML INH SOL NEB SCH ×4 (08:43→18:40)
[2020-04-28] MEDS: ALBUTEROL SULF 2.5 MG/0.5ML(0.5%) NEB SOLN NEB SCH ×4 (08:43→18:40)
[2020-04-28 09:00] VITALS: BP 130/88
[2020-04-28] MEDS: PANTOPRAZOLE 40 MG/10 ML VIAL INJ IV SCH (09:24)
[2020-04-28] MEDS: LEVOTHYROXINE SODIUM 100 MCG/5 ML INJ IV SCH (09:24)
[2020-04-28] MEDS: SODIUM CHLOR 0.9% PF (SALINE LOCK) 10ML VIAL/SYR IV SCH ×2 (09:24→20:36)
[2020-04-28] MEDS ORDERED: DOCUSATE SOD 100 MG CAP PO ONE (11:15)
[2020-04-28] MEDS ORDERED: DOCUSATE SOD 100 MG CAP PO PRN (11:15)
[2020-04-28] MEDS: MORPHINE SULF INJ 2 MG/ML SYRINGE 1ML IV PRN ×2 (11:16→20:34)
[2020-04-28] MEDS ORDERED: LACTULOSE 20Gm/30ML SOLN PO PRN (11:30)
[2020-04-28 13:00] VITALS: BP 132/75
[2020-04-28] MEDS ORDERED: BISACODYL 10 MG RECT SUPP PR PRN (13:15)
--- NOTE | 2020-04-28 13:49 | NUR ---
re-assessment Per [facility] and PT, patient must NPO due to esophageal perforation. MD order sent to [facility], [facility], and [facility]. Per Odessa at [facility] she has accepted patient to facility. Per Odessa she will assign room and MD on Friday when patient is discharged. Dr Zimmerman informed me patient will be here until Friday. Bella case loader operator will obtain auth for facility and transportation. Addendum: 04/28/20 at 1354 by Hermila Baxter Amended: Links added.
--- NOTE | 2020-04-28 15:41 | NUR ---
1540- 04/28/20 - Contacted [employer] at [phone], spoke with ANKUR Ely who provided the following authorization [id number].
[2020-04-28 17:13] VITALS: BP 108/62
--- NOTE | 2020-04-28 18:45 | NUR ---
CHEST TUB PATIENT CHEST DRAINED 150 ML SEROSANGUINEOUS. CONNECTED TO CONTINUOUS SUCTION. NO S/S OF SOB/DISTRESS NOTED.
[2020-04-28] MEDS ORDERED: TPN PER PHARMACY IV NR ×9 (20:00)
[2020-04-28 22:00] VITALS: BP 118/60
[2020-04-29] MEDS: ACETYLCYSTEINE 10 %(100MG/ML) SOL 4ML NEB SCH ×3 (00:11→18:16)
[2020-04-29] MEDS: ALBUTEROL SULF 2.5 MG/0.5ML(0.5%) NEB SOLN NEB SCH ×4 (00:11→18:16)
[2020-04-29] MEDS: IPRATROPIUM BROM 0.5 MG/2.5ML INH SOL NEB SCH ×4 (00:11→18:16)
[2020-04-29] MEDS: MEROPENEM 1GM IVPB 100 ML IV SCH ×2 (00:26→14:30)
[2020-04-29] MEDS: ACCU-CHEK COMFORT CURVE STRIP VI SCH ×4 (00:37→17:27)
[2020-04-29] MEDS: InsuLIN REG 1unit/0.01ml Soln (100units/ml) SC SCH ×4 (06:00→17:28)
--- NOTE | 2020-04-29 06:00 | NUR ---
Chest tube output 0 ml.
[2020-04-29 06:55] LABS: Potassium 3.8 mmol/L (3.5-5.1)
[2020-04-29 07:00] LABS: Albumin 1.4 g/dL (3.4-5.0); BUN/Creatinine Ratio 21.2; Calcium 7.7 mg/dL (8.5-10.1); Magnesium 2.2 mg/dL (1.6-2.6)
[2020-04-29 07:03] LABS: Bilirubin, Total 0.5 mg/dL (0.2-1.0); Phosphorus 2.9 mg/dL (2.5-4.90); Total Protein 6.2 g/dL (6.4-8.2)
--- NOTE | 2020-04-29 07:24 | NUR ---
CHEST TUBE PATIENT CHEST DRAINED 350 ML SEROSANGUINEOUS. CONNECTED TO CONTINUOUS SUCTION. NO S/S OF SOB/DISTRESS NOTED.
[2020-04-29 08:30] VITALS: BP 137/92
[2020-04-29] MEDS: PANTOPRAZOLE 40 MG/10 ML VIAL INJ IV SCH (09:11)
[2020-04-29] MEDS: SODIUM CHLOR 0.9% PF (SALINE LOCK) 10ML VIAL/SYR IV SCH ×2 (09:11→20:30)
[2020-04-29] MEDS: LEVOTHYROXINE SODIUM 100 MCG/5 ML INJ IV SCH (09:11)
[2020-04-29] MEDS: MORPHINE SULF INJ 2 MG/ML SYRINGE 1ML IV PRN ×3 (09:11→20:36)
--- NOTE | 2020-04-29 11:58 | NUR ---
Nutrition Followup Notes Wt 68.3 kg Pt sleeping with no family by bedside. Pt currently NPO with TPN running at 66 ml/hr to provide 1930 kcal, 60g protein, 1690 NCP. Pt PN support is adequate as it meets 83-91% of energy needs and 113-142% of protein needs. Please refer to noted recommendations below under Comments. Will continue to monitor PO status, skin status, pertinent labs and weight trends. Will f/u in 2-3 days. Est energy needs 7677-4270 kcal (30-33kcal/kg BW 70.3kg), Est protein needs 42-53g (0.6-0.75g/kg BW 70.3kg d/t ARF, elevated RFT, no HD, adjust if HD noted or initiated) Will reassess prn Lab: BUN 43 H, CREAT 2.03 H, ALB 1.4 L, CA 7.7 L. BM: Pt with 2 BMs noted 04/25 in RN doc Skin: BS 21 low risk, full details in healthcare consulting manager doc. PES: Altered nutrition related labs r/t current and chronic medical condition aeb pt with elevated RFTs, LFTs, hyperglycemia, severe hypoalb Comments: 1) Continue to monitor po status, labs, skin 2) Gradually advance pt to an oral diet as tolerated per MD approval. Suggest a Renal Standard 50g protein, 2gNa, K2 diet 3) Refer pt to OPD on DC 4) Continue current plan of care
[2020-04-29 13:14] VITALS: BP 134/91
[2020-04-29 17:14] VITALS: BP 158/77
--- NOTE | 2020-04-29 18:30 | NUR ---
PT WAS UPSET BECAUSE HE COULD NOT EAT, TRYING TO PULL SUPRAPUBIC CATHETER APART, KICKED THE CHEST TUBE BOX, REDIRECTED PT THE REASON HE HAS TO BE NPO, PT STATED: "I DON'T CARE, GET OUT OF MY ROOM". I WAS UNABLE TO MEASURE THE CORRECT AMOUNT OF THE OUT PUT FROM THE CHEST TUBE DUE TO THE FLUID WAS MIXED UP.
[2020-04-29] MEDS ORDERED: TPN PER PHARMACY IV NR ×9 (20:00)
[2020-04-29 22:00] VITALS: BP 132/77
[2020-04-30] MEDS: ALBUTEROL SULF 2.5 MG/0.5ML(0.5%) NEB SOLN NEB SCH ×4 (00:37→18:41)
[2020-04-30] MEDS: ACETYLCYSTEINE 10 %(100MG/ML) SOL 4ML NEB SCH ×4 (00:37→18:41)
[2020-04-30] MEDS: IPRATROPIUM BROM 0.5 MG/2.5ML INH SOL NEB SCH ×4 (00:37→18:41)
[2020-04-30] MEDS: MEROPENEM 1GM IVPB 100 ML IV SCH ×2 (00:40→14:01)
[2020-04-30] MEDS: ACCU-CHEK COMFORT CURVE STRIP VI SCH ×4 (00:40→18:44)
[2020-04-30] MEDS: MORPHINE SULF INJ 2 MG/ML SYRINGE 1ML IV PRN ×3 (00:58→19:50)
[2020-04-30 05:00] VITALS: BP 145/88
[2020-04-30] MEDS: InsuLIN REG 1unit/0.01ml Soln (100units/ml) SC SCH ×4 (06:00→18:00)
[2020-04-30 06:47] LABS: Albumin 1.3 g/dL (3.4-5.0); BUN/Creatinine Ratio 20.7; Calcium 7.3 mg/dL (8.5-10.1); Magnesium 2.3 mg/dL (1.6-2.6); Potassium 3.8 mmol/L (3.5-5.1)
[2020-04-30 07:59] LABS: Bilirubin, Total 0.5 mg/dL (0.2-1.0); Total Protein 6.2 g/dL (6.4-8.2)
[2020-04-30 08:10] LABS: Phosphorus 2.9 mg/dL (2.5-4.90)
[2020-04-30 09:00] VITALS: BP 140/88
[2020-04-30] MEDS: SODIUM CHLOR 0.9% PF (SALINE LOCK) 10ML VIAL/SYR IV SCH ×2 (10:52→19:50)
[2020-04-30 13:00] VITALS: BP 151/87
[2020-04-30] MEDS: PANTOPRAZOLE 40 MG/10 ML VIAL INJ IV SCH (13:38)
[2020-04-30] MEDS: LEVOTHYROXINE SODIUM 100 MCG/5 ML INJ IV SCH (13:38)
[2020-04-30 16:52] VITALS: BP 162/97
[2020-04-30] MEDS ORDERED: TPN PER PHARMACY IV NR ×10 (20:00)
[2020-04-30 22:00] VITALS: BP 146/96
--- NOTE | 2020-04-30 22:41 | NUR ---
Temperature recheck 100.2 degrees F.
--- NOTE | 2020-04-30 23:52 | NUR ---
02 sat on RA 89%, applied 02 2L via n/c 02 sat recheck 95%.
[2020-05-01] MEDS: ALBUTEROL SULF 2.5 MG/0.5ML(0.5%) NEB SOLN NEB SCH ×4 (00:18→18:00)
[2020-05-01] MEDS: IPRATROPIUM BROM 0.5 MG/2.5ML INH SOL NEB SCH ×4 (00:18→18:00)
[2020-05-01] MEDS: ACETYLCYSTEINE 10 %(100MG/ML) SOL 4ML NEB SCH ×4 (00:18→18:00)
[2020-05-01] MEDS: ACCU-CHEK COMFORT CURVE STRIP VI SCH ×5 (00:40→23:48)
[2020-05-01] MEDS: MEROPENEM 1GM IVPB 100 ML IV SCH ×2 (01:04→13:00)
[2020-05-01] MEDS: MORPHINE SULF INJ 2 MG/ML SYRINGE 1ML IV PRN ×4 (02:56→23:51)
[2020-05-01 04:13] VITALS: BP 146/96
[2020-05-01 05:00] VITALS: BP 153/81
[2020-05-01] MEDS: InsuLIN REG 1unit/0.01ml Soln (100units/ml) SC SCH ×5 (06:00→23:48)
[2020-05-01 06:29] LABS: Albumin 1.3 g/dL (3.4-5.0); Calcium 7.5 mg/dL (8.5-10.1); Magnesium 2.3 mg/dL (1.6-2.6)
[2020-05-01 06:32] LABS: BUN/Creatinine Ratio 20.1; Bilirubin, Total 0.6 mg/dL (0.2-1.0); Phosphorus 2.8 mg/dL (2.5-4.90); Total Protein 6.6 g/dL (6.4-8.2)
--- NOTE | 2020-05-01 06:59 | NUR ---
Chest tube output 8 ml/ 12 hrs serous fluid.
[2020-05-01 08:00] VITALS: BP 156/86
[2020-05-01] MEDS ORDERED: SODIUM CHLORIDE 0.9% 1,000 ML IV SCH (10:00)
[2020-05-01] MEDS: PANTOPRAZOLE 40 MG/10 ML VIAL INJ IV SCH (10:20)
[2020-05-01] MEDS: LEVOTHYROXINE SODIUM 100 MCG/5 ML INJ IV SCH (10:21)
[2020-05-01] MEDS: SODIUM CHLOR 0.9% PF (SALINE LOCK) 10ML VIAL/SYR IV SCH ×2 (10:21→22:00)
--- NOTE | 2020-05-01 10:47 | NUR ---
D/C Planning Patient has been accepted to [facility] to room 116b accepting Masoud [address]ZMAN Dr Ph:( [phone]). [facility] has been arranged for 12 noon via [facility]. Informed RN Rosetta.
--- NOTE | 2020-05-01 10:50 | NUR ---
re-assessment Patient is discharged today to [facility]. Patient will be admitted to room 116b and Dr Meredith is the accepting MD. Pavithra PURDY will set up transport. Patient verbalized understanding and agreed to discharge to [facility]. Addendum: 05/01/20 at 1052 by Hermila DAVILA Amended: Links added.
--- NOTE | 2020-05-01 10:53 | NUR ---
re-assessment. The accepting MD has changed from Masoud to Dr Phipps. Addendum: 05/01/20 at 1053 by Hermila DAVILA Amended: Links added.
--- NOTE | 2020-05-01 11:22 | NUR ---
CHEST TUBE [facility] IS NOT ACCEPTING PATIENT WITH CHEST TUBE. DR DAY SPEAKING WITH DR JEREZ TO HAVE CHEST TUBE REMOVED. PAGED PAULA TO POSTPONE [facility] MARKET REPORTER TIME.
--- NOTE | 2020-05-01 12:25 | NUR ---
CHEST TUBE REMOVAL ORDER RECEIVED FROM DR DAY TO REMOVE CHEST TUBE. SUPPLIES GATHERED AND PATIENT INFORMED OF PROCEDURE. DR JEREZ AT BEDSIDE TO PERFORM PROCEDURE. CHEST TUBE REMOVED, XEROFORM APPLIED, AND DRESSING PLACED OVER SITE. PATIENT TOLERATED WELL. 02 SATURATION ON ROOM AIR IS 96% AND PATIENT IS EUPNEIC. WILL CONTINUE TO MONITOR.
[2020-05-01 17:00] VITALS: BP 154/77
--- NOTE | 2020-05-01 17:00 | NUR ---
REPORT REPORT CALLED TO [facility]. SPOKE WITH PITO.
--- NOTE | 2020-05-01 17:45 | NUR ---
DALIA Sargent advised me at 11 00 patient chest tube removal is pending and JENN will have to be put ON WILL CALL. Received a follow up called from DALIA Sargent Chest Tube has been removed and patient is ready to discharged. Informed DALIA BARAJAS is requesting a new authorization and ANKUR Blanco will be obtaining the new authorization due to patient needing a Nurse during transfer for TPN Care. [facility] was arranged for 19:30. Received a follow up called from Dominique with [facility] at 17:40 advising me they have to change time of supervisor picking crew for midnight due to not nurse available for 19:30. Informed DALIA Sargent.
--- NOTE | 2020-05-01 17:49 | NUR ---
[facility] SET BUILDER SET BUILDER TIME HAS BEEN PUSHED BACK TO MIDNIGHT TONIGHT. [facility] DOESN'T HAVE A NURSE AVAILABLE FOR TRANSPORT UNTIL THEN.
[2020-05-01] MEDS ORDERED: TPN PER PHARMACY IV NR ×10 (20:00)
--- NOTE | 2020-05-01 20:00 | NUR ---
Opening Shift Note Assumed care of patient, awake and alert. No S/S of distress/SOB or pain. Instructed on POC and to call for assist PRN, verbalized understanding. Instructed to turn to his side to check on dressing, patient refused at this time and stated, "Don't do anything to me and don't touch me." Will continue to monitor for changes Q1hr and PRN.
--- NOTE | 2020-05-01 20:15 | NUR ---
Noted TPN order cancelled at this time by the pharmacist, TPN not available in the fridge
[2020-05-01 22:00] VITALS: BP 165/86
[2020-05-01 23:00] VITALS: BP 135/89
--- NOTE | 2020-05-01 23:05 | NUR ---
JENN called and informed primary RN of the ETA at 0100
[2020-05-02] MEDS: IPRATROPIUM BROM 0.5 MG/2.5ML INH SOL NEB SCH (00:27)
[2020-05-02] MEDS: ACETYLCYSTEINE 10 %(100MG/ML) SOL 4ML NEB SCH (00:28)
[2020-05-02] MEDS: ALBUTEROL SULF 2.5 MG/0.5ML(0.5%) NEB SOLN NEB SCH (00:28)
--- NOTE | 2020-05-02 00:28 | NUR ---
Updated hospitalist Pang about TPN not available at this time. Received order to hooked D10 for the meantime, will continue to monitor
[2020-05-02] MEDS ORDERED: DEXTROSE 10% 1,000 ML IV ONE (00:30)
--- NOTE | 2020-05-02 00:30 | NUR ---
Respiratory note: AT BEDSIDE FOR MED DINO KNAPP.
--- NOTE | 2020-05-02 00:30 | NUR ---
Spoke to [place] Staff Danna and updated on patient's status
[2020-05-02] MEDS: MEROPENEM 1GM IVPB 100 ML IV SCH (01:27)
--- NOTE | 2020-05-02 01:31 | NUR ---
Patient asked for a swab and a little water to moisten his lips and mouth. Reminded him of being NPO. Patient drank the water instead and said, "I'm not gonna with that small water."
--- NOTE | 2020-05-02 02:10 | NUR ---
Discharge instructions given as ordered. All questions and concerns addressed. Patient verbalized understanding. PICC line maintained and all 3 ports flushing good. D10 infusing at 45 ml/hr. Medication reconciliation form completed and copy given to [facility] staff. Report given to accompanying RN Radha and Staff Danna at [facility]. Patient transported by [facility] with all personal belongings. No distress noted at time of departure. Per patient, he will be calling his daughter tomorrow and let her know of his transfer.
== END 2020-05-02 02:10 | DRG 871 ==
LOC: EDBD 22:01 → ER 22:01 → TELE 22:02 → TELE-WESTW 04-10 17:39 → TELE-EAST 04-11 23:57 → ICU WEST 04-12 09:26 → DOU IN ICU 04-16 01:24 → TELE-CENTR 04-18 13:20 → CENTRAL 04-20 14:16
PROVIDERS: ADMIT Hospitalist; ATTEND Internal Medicine
PROC: 5A09357 Assistance with Respiratory Ventilation, Less than 24 Consecutive Hours, Continuous Positive Airway Pressure (ICD-10-PCS; 2020-04-09)
PROC: 30233K1 Transfusion of Nonautologous Frozen Plasma into Peripheral Vein, Percutaneous Approach (ICD-10-PCS; 2020-04-12)
PROC: 0W9B30Z Drainage of Left Pleural Cavity with Drainage Device, Percutaneous Approach (ICD-10-PCS; 2020-04-12)
PROC: 0W9C3ZZ Drainage of Mediastinum, Percutaneous Approach (ICD-10-PCS; 2020-04-12)
PROC: 05HB33Z Insertion of Infusion Device into Right Basilic Vein, Percutaneous Approach (ICD-10-PCS; 2020-04-12)
PROC: 30233L1 Transfusion of Nonautologous Fresh Plasma into Peripheral Vein, Percutaneous Approach (ICD-10-PCS; 2020-04-12)
PROC: 0T9B70Z Drainage of Bladder with Drainage Device, Via Natural or Artificial Opening (ICD-10-PCS; 2020-04-13)
PROC: 02HV33Z Insertion of Infusion Device into Superior Vena Cava, Percutaneous Approach (ICD-10-PCS; 2020-04-13)
PROC: 5A1935Z Respiratory Ventilation, Less than 24 Consecutive Hours (ICD-10-PCS; 2020-04-14)
PROC: 0BH17EZ Insertion of Endotracheal Airway into Trachea, Via Natural or Artificial Opening (ICD-10-PCS; 2020-04-14)
PROC: 5A1935Z Respiratory Ventilation, Less than 24 Consecutive Hours (ICD-10-PCS; 2020-04-15)
PROC: 0W9930Z Drainage of Right Pleural Cavity with Drainage Device, Percutaneous Approach (ICD-10-PCS; principal; 2020-04-27)
DX: A41.9 Sepsis, unspecified organism (principal); K22.3 Perforation of esophagus; J18.9 Pneumonia, unspecified organism; I50.43 Acute on chronic combined systolic (congestive) and diastolic (congestive) heart failure; N18.6 End stage renal disease; K76.7 Hepatorenal syndrome; J98.51 Mediastinitis; G92 Toxic encephalopathy; J96.00 Acute respiratory failure, unspecified whether with hypoxia or hypercapnia; N17.0 Acute kidney failure with tubular necrosis; N39.0 Urinary tract infection, site not specified; E87.1 Hypo-osmolality and hyponatremia; I13.2 Hypertensive heart and chronic kidney disease with heart failure and with stage 5 chronic kidney disease, or end stage renal disease; J98.11 Atelectasis; D68.9 Coagulation defect, unspecified; J90 Pleural effusion, not elsewhere classified; N13.8 Other obstructive and reflux uropathy; J93.9 Pneumothorax, unspecified; E87.0 Hyperosmolality and hypernatremia; J93.83 Other pneumothorax; R18.8 Other ascites; K76.6 Portal hypertension; E44.0 Moderate protein-calorie malnutrition; Z68.1 Body mass index [BMI] 19.9 or less, adult; R07.2 Precordial pain; E03.9 Hypothyroidism, unspecified; R79.89 Other specified abnormal findings of blood chemistry; E87.5 Hyperkalemia; E83.51 Hypocalcemia; N13.9 Obstructive and reflux uropathy, unspecified; I25.2 Old myocardial infarction; E78.5 Hyperlipidemia, unspecified; I25.10 Atherosclerotic heart disease of native coronary artery without angina pectoris; N40.1 Benign prostatic hyperplasia with lower urinary tract symptoms; N35.919 Unspecified urethral stricture, male, unspecified site; E66.9 Obesity, unspecified; R74.0 Nonspecific elevation of levels of transaminase and lactic acid dehydrogenase [LDH]; E11.22 Type 2 diabetes mellitus with diabetic chronic kidney disease; E87.6 Hypokalemia; I25.5 Ischemic cardiomyopathy; N18.3 Chronic kidney disease, stage 3 (moderate); F17.200 Nicotine dependence, unspecified, uncomplicated; K57.30 Diverticulosis of large intestine without perforation or abscess without bleeding; D63.1 Anemia in chronic kidney disease; E11.65 Type 2 diabetes mellitus with hyperglycemia; J98.2 Interstitial emphysema; Z98.61 Coronary angioplasty status; Z93.59 Other cystostomy status; Z91.19 Patient's noncompliance with other medical treatment and regimen; Z95.810 Presence of automatic (implantable) cardiac defibrillator; K74.60 Unspecified cirrhosis of liver; Z20.828 Contact with and (suspected) exposure to other viral communicable diseases
CPT/HCPCS: 10022; 36415; 36569; 36600; 71045; 71250; 74176; 74220; 76604; 76775; 76942; 77012; 78452; 80048; 80053; 80061; 81001; 82040; 82306; 82570; 82805; 82962; 83036; 83735; 83880; 83970; 83986; 84100; 84300; 84439; 84443; 84478; 84481; 84484; 85007; 85025; 85027; 85610; 85730; 86850; 86870; 86900; 86901; 87040; 87070; 87081; 87086; 87205; 89051; 93005; 93017; 93306; 94640; 94660; 96365; 96372; 96375; 96376; 97116; 97163; 97530; A4223; A4565; C1729; C9113; G0378; J0153; J0696; J1815; J2001; J2185; J2250; J2405; J2543; J3430; J3480; J3490